=== PATIENT | male | born 1965 | race Caucasian/White ===

== ENCOUNTER 2020-06-29 07:06 | Outpatient (REF) | payer OTHER, SELFPAY ==
[2020-06-29 07:57] LABS: MANUAL DIFF FLAG NO
[2020-06-29 08:01] LABS: Basophils Absolute Auto 0.1 X10*3/uL (0.0-0.2); Basophils Percent Auto 1.1 % (0-2); Eosinophils Absolute Auto 0.1 X10*3/uL (0.0-0.4); Eosinophils Percent Auto 1.3 % (0-4); Hematocrit 48.3 % (42-52); Hemoglobin 16.2 g/dl (14.0-18.0); Imm Gran Abs Auto 0.02 X10*3/uL (0.00-0.03); Imm Gran Pct Auto 0.2 % (0.0-0.4); Lymphocytes Absolute Auto 3.1 X10*3/uL (1.2-4.9); Mean Corpuscular HGB Conc 33.5 g/dl (31.0-36.0); Mean Corpuscular Hemoglobin 31.8 pg (27.0-33.0); Mean Corpuscular Volume 94.7 fL (80-98); Mean Platelet Volume 10.5 fL (9.4-12.4); Monocytes Absolute Auto 0.4 X10*3/uL (0.1-1.2); Monocytes Percent Auto 4.7 % (2-11); Neutrophils Absolute Auto 4.9 X10*3/uL (2.0-8.3); Neutrophils Percent Auto 56.7 % (45-73); Platelet Count 245 X10*3/uL (160-400); Red Cell Distribution Width 12.7 % (11.0-16.0); White Blood Count 8.6 X10*3/uL (4.8-10.8)
[2020-06-29 08:08] LABS: Glucose Urine UA >=1000 MG/DL (NEG); Leukocyte Esterase Urine NEG (NEG); Nitrite Urine NEG (NEG); Specific Gravity - Urine 1.025 (1.005-1.025); Urine Blood NEG (NEG); Urine Ketones NEG (NEG); Urine Protein NEG (NEG-TRACE)
[2020-06-29 08:10] LABS: Appearance Urine CLEAR; Color Urine YELLOW
[2020-06-29 08:19] LABS: Mucus Urine TRACE /LPF; RBC Urine 0 /HPF (0); Squamous Epithelial Cell Urine TRACE /LPF; WBC Urine 0-2 /HPF (0-4)
[2020-06-29 08:20] LABS: Alanine Aminotransferase 21 U/L (0-40); Albumin Level 4.4 g/dL (3.5-5.0); Alkaline Phosphatase 52 U/L (39-117); Anion Gap 14 (12-20); Aspartate Amino Transferase 20 U/L (5-37); Bilirubin Total 0.5 mg/dL (0.0-1.0); Blood Urea Nitrogen 19 mg/dL (9-16); Carbon Dioxide 27 mmol/L (22-29); Chloride 106 mmol/L (96-108); Cholesterol 141 mg/dL; Estimated Glomerular Filt Rate > 60; Glucose Fasting 120 mg/dL (60-99); HDL Cholesterol 64 mg/dL; LDL Cholesterol Calculated 55 mg/dl; Potassium 4.4 mmol/L (3.3-5.1); Sodium 143 mmol/L (135-145); Total Protein 6.6 g/dL (6.5-8.0); Triglycerides 112 mg/dL
[2020-06-29 08:41] LABS: Creatinine Urine 148.52 mg/dL; Microalbum/Creatinine Ratio Ur 12.7 ug/mg cr
[2020-06-29 08:41] LABS: Prostate Specific Antigen 0.34 ng/mL (<0.05-4.0)
[2020-06-29 09:21] LABS: Estimated Average Glucose 117 mg/dL; Hemoglobin A1c % 5.7 %
== END 2020-06-29 07:07 | disposition home or self-care (01) ==
LOC: HO.LAB 07:06
PROVIDERS: Visit Provider Internal Medicine
DX: Z00.00 Encounter for general adult medical examination without abnormal findings (principal); E11.9 Type 2 diabetes mellitus without complications; Z12.5 Encounter for screening for malignant neoplasm of prostate; E78.00 Pure hypercholesterolemia, unspecified; I10 Essential (primary) hypertension; D72.820 Lymphocytosis (symptomatic)
CPT/HCPCS: 36415; 80053; 80061; 81001; 81003; 82043; 83036; 84153; 85025

== ENCOUNTER 2021-02-25 10:22 | Outpatient (REF) | payer OTHER, SELFPAY ==
[2021-02-25 10:59] LABS: Alanine Aminotransferase 27 U/L (0-40); Albumin Level 4.3 g/dL (3.5-5.0); Alkaline Phosphatase 51 U/L (39-117); Aspartate Amino Transferase 27 U/L (5-37); Bilirubin Direct 0.4 mg/dL (0.0-0.5); Bilirubin Total 0.9 mg/dL (0.0-1.0); Cholesterol 163 mg/dL; Glucose Fasting 103 mg/dL (60-99); HDL Cholesterol 78 mg/dL; LDL Cholesterol Calculated 61 mg/dl; Total Protein 6.7 g/dL (6.5-8.0); Triglycerides 122 mg/dL
[2021-02-25 11:01] LABS: Estimated Average Glucose 117 mg/dL; Hemoglobin A1c % 5.7 %
[2021-02-25 11:31] LABS: Reflex LDLD? No
== END 2021-02-25 10:23 | disposition home or self-care (01) ==
LOC: HO.LNP 10:22
PROVIDERS: Visit Provider Internal Medicine
DX: E11.9 Type 2 diabetes mellitus without complications (principal); E78.00 Pure hypercholesterolemia, unspecified
CPT/HCPCS: 80061; 80076; 82947; 83036

== ENCOUNTER 2021-07-05 10:41 | Outpatient (REF) | payer OTHER, SELFPAY ==
[2021-07-05 10:46] LABS: MANUAL DIFF FLAG NO
[2021-07-05 11:02] LABS: Basophils Absolute Auto 0.1 X10*3/uL (0.0-0.2); Basophils Percent Auto 0.9 % (0-2); Eosinophils Absolute Auto 0.1 X10*3/uL (0.0-0.4); Eosinophils Percent Auto 1.1 % (0-4); Hematocrit 44.7 % (42.0-52.0); Hemoglobin 15.1 g/dl (14.0-18.0); Imm Gran Abs Auto 0.02 X10*3/uL (0.00-0.03); Imm Gran Pct Auto 0.3 % (0.0-0.4); Lymphocytes Absolute Auto 3.6 X10*3/uL (1.2-4.9); Lymphocytes Percent Auto 47.7 % (20-40); Mean Corpuscular HGB Conc 33.8 g/dl (31.0-36.0); Mean Corpuscular Hemoglobin 31.8 pg (27.0-33.0); Mean Corpuscular Volume 94.1 fL (80.0-98.0); Mean Platelet Volume 10.4 fL (9.4-12.4); Monocytes Absolute Auto 0.3 X10*3/uL (0.1-1.2); Monocytes Percent Auto 4.5 % (2-11); Neutrophils Absolute Auto 3.4 x10*3/uL (2.0-8.3); Neutrophils Percent Auto 45.5 % (45-73); Platelet Count 262 X10*3/uL (160-400); Red Blood Count 4.75 X10*6/uL (4.60-5.80); Red Cell Distribution Width 13.2 % (11.0-16.0); White Blood Count 7.5 X10*3/uL (4.8-10.8)
[2021-07-05 11:08] LABS: Appearance Urine CLEAR; Color Urine STRAW; Glucose Urine UA NEG (NEG); Leukocyte Esterase Urine NEG (NEG); Nitrite Urine NEG (NEG); PH 5.5 (5.0-8.0); Urine Blood NEG (NEG); Urine Ketones NEG (NEG); Urine Protein NEG (NEG-TRACE)
[2021-07-05 11:13] LABS: Alanine Aminotransferase 25 U/L (0-40); Albumin Level 3.9 g/dL (3.5-5.0); Alkaline Phosphatase 45 U/L (39-117); Anion Gap 11 (12-20); Aspartate Amino Transferase 24 U/L (5-37); Bilirubin Total 0.5 mg/dL (0.0-1.0); Blood Urea Nitrogen 12 mg/dL (9-16); Calcium 8.7 mg/dL (8.4-10.2); Carbon Dioxide 29 mmol/L (22-29); Chloride 106 mmol/L (96-108); Cholesterol 153 mg/dL; Estimated Glomerular Filt Rate > 60; Glucose Fasting 109 mg/dL (60-99); HDL Cholesterol 69 mg/dL; LDL Cholesterol Calculated 67 mg/dl; Potassium 4.5 mmol/L (3.3-5.1); Sodium 141 mmol/L (135-145); Total Protein 6.1 g/dL (6.5-8.0); Triglycerides 86 mg/dL
[2021-07-05 11:35] LABS: PSA,Total (Free>4and<10) 0.39 ng/mL (0.00-4.00)
[2021-07-05 11:46] LABS: Creatinine Urine 61.12 mg/dL; Microalbum/Creatinine Ratio Ur 34.3 ug/mg cr
[2021-07-05 12:10] LABS: Estimated Average Glucose 126 mg/dL
== END 2021-07-05 10:42 | disposition home or self-care (01) ==
LOC: HO.LNP 10:41
PROVIDERS: PCP Internal Medicine; Visit Provider Internal Medicine
DX: Z00.00 Encounter for general adult medical examination without abnormal findings (principal); Z12.5 Encounter for screening for malignant neoplasm of prostate; E11.9 Type 2 diabetes mellitus without complications; I10 Essential (primary) hypertension; D72.820 Lymphocytosis (symptomatic)
CPT/HCPCS: 80053; 80061; 81003; 82043; 83036; 84153; 85025

== ENCOUNTER 2022-01-06 10:48 | Outpatient (REF) | payer OTHER, SELFPAY ==
[2022-01-06 12:03] LABS: Estimated Average Glucose 123 mg/dL; Hemoglobin A1c % 5.9 %
[2022-01-06 12:11] LABS: Alanine Aminotransferase 27 U/L (0-40); Albumin Level 4.2 g/dL (3.5-5.0); Alkaline Phosphatase 60 U/L (39-117); Aspartate Amino Transferase 22 U/L (5-37); Bilirubin Direct 0.2 mg/dL (0.0-0.5); Bilirubin Total 0.5 mg/dL (0.0-1.0); Cholesterol 175 mg/dL; Glucose Fasting 130 mg/dL (60-99); HDL Cholesterol 66 mg/dL; LDL Cholesterol Calculated 95 mg/dl; Total Protein 6.4 g/dL (6.5-8.0); Triglycerides 71 mg/dL
== END 2022-01-06 10:49 | disposition home or self-care (01) ==
LOC: HO.LNP 10:48
PROVIDERS: Visit Provider Internal Medicine
DX: E11.9 Type 2 diabetes mellitus without complications (principal); E78.00 Pure hypercholesterolemia, unspecified
CPT/HCPCS: 80061; 80076; 82947; 83036

== ENCOUNTER 2022-04-30 09:08 | Outpatient (REF) | payer OTHER, SELFPAY ==
--- NOTE | ~2022-04-30 | XR_ITS ---
EXAMINATION: XR CERVICAL SPINE CLINICAL INFORMATION: Cervical pain. COMPARISON: None TECHNIQUE: 5 views of the cervical spine were obtained. FINDINGS: There is straightening of the normal cervical lordosis. Mild degenerative disc disease is seen from C4-5 to C7-T1 with disc space narrowing and marginal osteophyte formation. Mild bilateral neural foraminal narrowing is seen at C5-6 and C6-7. The odontoid process is intact. The spinous processes are intact. The soft tissues are unremarkable.. Mild grade 1 anterolisthesis is seen at C4-5. XR/XR cervical spine 4V IMPRESSION: 1. Straightening of the normal cervical lordosis may be secondary to positioning and/or muscle spasm. 2. Mild multilevel degenerative disc disease. C5-6 and C6-7 mild bilateral neural foraminal narrowing. 3. C4-5 mild grade 1 anterolisthesis.
== END 2022-04-30 09:09 | disposition home or self-care (01) ==
LOC: HO.HMGCX 09:08
PROVIDERS: PCP Internal Medicine; Visit Provider Internal Medicine
DX: M50.90 Cervical disc disorder, unspecified, unspecified cervical region (principal)
CPT/HCPCS: 72050

== ENCOUNTER 2022-05-16 07:59 | Outpatient (REF) | payer OTHER, SELFPAY ==
--- NOTE | ~2022-05-16 | CT_ITS ---
EXAMINATION: CT CERVICAL SPINE WITHOUT CONTRAST CLINICAL INFORMATION: Cervical disc disorder. Neck pain. COMPARISON: None TECHNIQUE: 2 mm thin axial and reformatted 2 minutes thin sagittal coronal images of cervical spine were obtained. This CT examination was performed using dose optimization techniques as appropriate, variously including the following: *Automated exposure control *Adjustment of mA and/or kV according to patient size (this includes techniques or standardized protocols for targeted exams where dose is matched to indication/reason for exam; i.e. extremities or head) *Use of iterative reconstruction technique DLP: 623 mGy-cm FINDINGS: There is mild straightening of cervical lordosis. The vertebral heights and alignment is normal. There is loss of C4-C5, C5-C6 and C6-C7 disc heights with mild ventral and posterior spondylosis. The craniovertebral junction and C1-C2 alignment is normal. There is no visible acute fracture, dislocation or subluxation seen. There is mild narrowing of right neural foramina C5-C6 and bilaterally at C6-C7 disc levels from uncovertebral hypertrophic changes. No disc bulge, herniation or spinal canal stenosis seen. The prevertebral and paravertebral soft tissues are normal. The airway is widely patent. The lung apices are clear. Mild degenerative changes with vacuum phenomena of bilateral first rib costovertebral junction is noted. The thyroid lobes are slightly asymmetrical but normal. Partially visualized submandibular and parotid glands are unremarkable. CT/CT cervical spine wo IV con IMPRESSION: Degenerative disc changes with spondylosis C4-C5, C5-C6 and C6-C7 disc levels. Mild straightening of cervical lordosis likely spasm. No visible acute fracture or dislocation seen. Fleischner guidelines were followed.
== END 2022-05-16 08:00 | disposition home or self-care (01) ==
LOC: HO.CT 07:59
PROVIDERS: PCP Internal Medicine; Visit Provider Internal Medicine
DX: M50.90 Cervical disc disorder, unspecified, unspecified cervical region (principal)
CPT/HCPCS: 72125

== ENCOUNTER 2022-06-14 10:38 | Outpatient (REF) | payer OTHER, SELFPAY ==
[2022-06-14 11:51] LABS: Blood Urea Nitrogen 13 mg/dL (9-16); Estimated Glomerular Filt Rate > 60
== END 2022-06-14 10:39 | disposition home or self-care (01) ==
LOC: HO.LNP 10:38
PROVIDERS: Visit Provider Internal Medicine
DX: Z01.812 Encounter for preprocedural laboratory examination (principal)
CPT/HCPCS: 82565; 84520

== ENCOUNTER 2022-07-25 11:21 | Outpatient (REF) | payer OTHER, SELFPAY ==
[2022-07-25 11:26] LABS: MANUAL DIFF FLAG NO
[2022-07-25 11:42] LABS: Basophils Absolute Auto 0.1 X10*3/uL (0.0-0.2); Basophils Percent Auto 1.2 % (0-2); Eosinophils Absolute Auto 0.1 X10*3/uL (0.0-0.4); Eosinophils Percent Auto 1.4 % (0-4); Hematocrit 44.3 % (42.0-52.0); Hemoglobin 15.1 g/dl (14.0-18.0); Imm Gran Abs Auto 0.02 X10*3/uL (0.00-0.03); Imm Gran Pct Auto 0.2 % (0.0-0.4); Lymphocytes Absolute Auto 3.4 X10*3/uL (1.2-4.9); Lymphocytes Percent Auto 34.8 % (20-40); Mean Corpuscular HGB Conc 34.1 g/dl (31.0-36.0); Mean Corpuscular Hemoglobin 32.4 pg (27.0-33.0); Mean Corpuscular Volume 95.1 fL (80.0-98.0); Mean Platelet Volume 11.4 fL (9.4-12.4); Monocytes Absolute Auto 0.4 X10*3/uL (0.1-1.2); Monocytes Percent Auto 3.9 % (2-11); Neutrophils Absolute Auto 5.7 x10*3/uL (2.0-8.3); Neutrophils Percent Auto 58.5 % (45-73); Platelet Count 277 X10*3/uL (160-400); Red Blood Count 4.66 X10*6/uL (4.60-5.80); Red Cell Distribution Width 12.7 % (11.0-16.0); White Blood Count 9.7 X10*3/uL (4.8-10.8)
[2022-07-25 11:49] LABS: Estimated Average Glucose 134 mg/dL; Hemoglobin A1c % 6.3 %
[2022-07-25 12:02] LABS: Appearance Urine Clear; Color Urine Yellow; Glucose Urine UA Negative (Negative); Leukocyte Esterase Urine Negative (Negative); Nitrite Urine Negative (Negative); PH 5.5 (5.0-9.0); Specific Gravity - Urine 1.015 (1.005-1.025); Urine Blood Negative (Negative); Urine Ketones Negative (Negative); Urine Protein Negative (Neg-Trace)
[2022-07-25 12:04] LABS: Alanine Aminotransferase 24 U/L (0-40); Albumin Level 4.2 g/dL (3.5-5.0); Alkaline Phosphatase 53 U/L (39-117); Anion Gap 12 (12-20); Aspartate Amino Transferase 21 U/L (5-37); Bilirubin Total 0.8 mg/dL (0.0-1.0); Blood Urea Nitrogen 12 mg/dL (9-16); Calcium 9.1 mg/dL (8.4-10.2); Carbon Dioxide 29 mmol/L (22-29); Chloride 104 mmol/L (96-108); Cholesterol 175 mg/dL; Estimated Glomerular Filt Rate > 60; Glucose Fasting 152 mg/dL (60-99); HDL Cholesterol 63 mg/dL; LDL Cholesterol Calculated 87 mg/dl; Potassium 3.8 mmol/L (3.3-5.1); Sodium 141 mmol/L (135-145); Total Protein 6.4 g/dL (6.5-8.0); Triglycerides 126 mg/dL
[2022-07-25 12:07] LABS: Bacteria Urine None Seen (None Seen); Hyaline Casts Urine 0-2 /LPF (0-2); RBC Urine 0-2 /HPF (0-2); Squamous Epithelial Cell Urine 0-2 /HPF (0-2); WBC Urine 0-5 /HPF (0-5)
[2022-07-25 12:19] LABS: PSA,Total (Free>4and<10) 0.51 ng/mL (0.00-4.00)
[2022-07-25 13:05] LABS: Creatinine Urine 109.89 mg/dL; Microalbum/Creatinine Ratio Ur 14.5 ug/mg cr
[2022-07-25 13:53] LABS: Reflex LDLD? No
== END 2022-07-25 11:22 | disposition home or self-care (01) ==
LOC: HO.LNP 11:21
PROVIDERS: Visit Provider Internal Medicine
DX: Z00.00 Encounter for general adult medical examination without abnormal findings (principal); Z12.5 Encounter for screening for malignant neoplasm of prostate; E11.9 Type 2 diabetes mellitus without complications; E78.00 Pure hypercholesterolemia, unspecified; I10 Essential (primary) hypertension; D72.820 Lymphocytosis (symptomatic)
CPT/HCPCS: 80053; 80061; 81001; 82043; 83036; 84153; 85025

== ENCOUNTER 2023-02-03 08:44 | Day surgery (SDC) | payer OTHER, SELFPAY ==
--- NOTE | 2023-02-02 12:19 | HO.ANESPROP2 ---
Documented by User: Gladys Valle NP 02/02/23 12:19 HPI - Anesthesia Eval Consult details Narrative: 57yo M for Upper Endoscopy and Colonoscopy [facility] Past Medical History Medical History Elevated cholesterol Sciatica Cervical disc disease HTN (hypertension) Diabetes Hiatal hernia Jones esophagus Surgical History Surgical History Hx of umbilical hernia repair History of surgery on arm Hx of colonoscopy Hx of esophagogastroduodenoscopy Social History Social History Patient Tobacco Use Status: Current everyday Tobacco user Tobacco use type: Cigarette Cigarette Packs Per Day: 1 Cigarettes Per Day: 20.0 Years Smoked: 20 Meds Allergies Allergy/AdvReac Type Severity Reaction Status Date / Time Sulfa (Sulfonamide Allergy Unknown UNKNOWN - Unverified 02/13/20 14:50 Antibiotics) A YOUNG [SULFA (SULFONAMIDE CHILD ANTIBIOTICS)] Sulfa Allergy Unknown Uncoded 08/30/18 00:00 Home Medications Medication Instructions Recorded Confirmed Last Taken Type atorvastatin 20 mg tablet 20 mg PO DAILY 02/02/23 02/02/23 Unknown History ibuprofen 800 mg tablet 800 mg PO TID 02/02/23 02/02/23 Unknown History irbesartan 300 1 tab PO DAILY 02/02/23 02/02/23 Unknown History mg-hydrochlorothiazide 12.5 mg tablet ketoconazole 2 % topical cream 1 appl topical 02/02/23 Unknown History metformin 500 mg tablet 1,000 mg PO BID 02/02/23 02/02/23 Unknown History omeprazole 20 mg capsule,delayed 20 mg PO DAILY 02/02/23 02/02/23 Unknown History release sitagliptin phosphate 50 mg tablet 50 mg PO DAILY 02/02/23 02/02/23 Unknown History (Januvia) valacyclovir 1 gram tablet 4,000 mg PO ONCE 02/02/23 02/02/23 Unknown History Exam Exam Date and Time: February 02, 2023 121 Assessment and Plan Assessment Anesthesia Assessment: Chart Reviewed Documented by User: Meera Godwin MD 02/03/23 11:21 PMFSH Active Problems Active Problems: Smoker- last cigarette this morning HTN DM GERD Past Medical History Medical History Elevated cholesterol Sciatica Cervical disc disease HTN (hypertension) Diabetes Hiatal hernia Jones esophagus Family History Family history of problems with anesthesia: No Surgical History Surgical History Hx of umbilical hernia repair History of surgery on arm Hx of colonoscopy Hx of esophagogastroduodenoscopy History of Problems with Anesthesia: No (but patient states was told that he probably has NIA with UE surgery. Never tested) Social History Social History Patient Tobacco Use Status: Current everyday Tobacco user Tobacco use type: Cigarette Cigarette Packs Per Day: 1 Cigarettes Per Day: 20.0 Years Smoked: 20 Meds Allergies Allergy/AdvReac Type Severity Reaction Status Date / Time Sulfa (Sulfonamide Allergy Unknown UNKNOWN - Unverified 02/13/20 14:50 Antibiotics) A YOUNG [SULFA (SULFONAMIDE CHILD ANTIBIOTICS)] Sulfa Allergy Unknown Uncoded 08/30/18 00:00 Home Medications Medication Instructions Recorded Confirmed Last Taken Type atorvastatin 20 mg tablet 20 mg PO DAILY 02/02/23 02/02/23 Unknown History ibuprofen 800 mg tablet 800 mg PO TID 02/02/23 02/02/23 Unknown History irbesartan 300 1 tab PO DAILY 02/02/23 02/02/23 Unknown History mg-hydrochlorothiazide 12.5 mg tablet ketoconazole 2 % topical cream 1 appl topical 02/02/23 Unknown History metformin 500 mg tablet 1,000 mg PO BID 02/02/23 02/02/23 Unknown History omeprazole 20 mg capsule,delayed 20 mg PO DAILY 02/02/23 02/02/23 Unknown History release sitagliptin phosphate 50 mg tablet 50 mg PO DAILY 02/02/23 02/02/23 Unknown History (Januvia) valacyclovir 1 gram tablet 4,000 mg PO ONCE 02/02/23 02/02/23 Unknown History Exam Height,Weight and Vital Signs: Height 5 ft 9 in Weight 104.326 kg Vital Signs Temp Pulse Resp BP Pulse Ox O2 Del Method 02/03/23 11:00 98.1 F 90 18 137/88 96 Room Air Pertinent Lab Results Pertinent Lab Results: Lab Results 02/03/23 Range/Units 10:45 POC Glucose 148 H (60-115) mg/dL Airway Mallampati Class: III TM Dist: >3cm Neck ROM: Full Loose/Missing/Broken Teeth: Yes (Broken tooth bottom back left. Denies loose or missing teeth) Heart: RRR Lungs: CTAB Assessment and Plan Final Anesthetic Review Family History of Problems with Anesthesia: No History of Problems with Anesthesia: No (but patient states was told that he probably has NIA with UE surgery. Never tested) NPO: Yes ASA Class: III Final Preanesthetic Review: No Changes in Pt Med Stat, Meds/Allgs Chart Reviewed, Consent Obtained/Reviewed and Anes Risks/Benef Reviewed Patient Risk: Intermediate Procedure Risk: Low Assessment/Block/Sedation in SS: Assess/Block/Sedation-SS Anesthetic Plan Anesthetic Plan: MAC: Disposition: Standard PACU
[2023-02-03] VITALS (9 sets, daily range): BP systolic 73–137; BP diastolic 42–88; PULSE 81–96; RESP 14–18; TEMP 36.2–36.7; O2SAT 96–99; BMI 34.0
[2023-02-03 10:50] LABS: Glucose, Whole Blood 148 mg/dL (60-115)
--- NOTE | 2023-02-03 11:05 | P.HPSUR_ITS ---
Pre-Procedural Eval Section A Date of Service: 02/03/23 Section B Chief Complaint: Jones's esophagus without dysplasia,screening Details of Present Illness: see h&p no changes Relevant Family History (Specify if Yes): No Relevant Social History: None Present Medications: see Short Stay Collaborative assessment Medical History: No relevant PMH Allergies: Allergies Allergy/AdvReac Type Severity Reaction Status Date / Time Sulfa (Sulfonamide Allergy Unknown UNKNOWN - Unverified 02/13/20 14:50 Antibiotics) A YOUNG [SULFA (SULFONAMIDE CHILD ANTIBIOTICS)] Sulfa Allergy Unknown Uncoded 08/30/18 00:00 Review of Systems Sugical H&P ROS: Negative: Constitution, Cardiovascular, Respiratory, Neurological, Psychiatric, Hem-Onc, Allergic/Immunologic, Gastrointestinal, Genitourinary, Musculoskeletal, Integumentary, Endocrine and Eyes/Ears/N ose/Throat Exam Surgical H&P Exam: Normal: HEENT, Normal: Heart, Normal: Lungs, Normal: Extremities, Normal: Abdomen, Normal: Skin and Normal: Neurological Plan I have reviewed the history and physical and performed a pertinent physical examination on my patient. No changes have occurred unless specified. Time Spent With Patient Time: Total time managing care of this patient today ____ minutes.
[2023-02-03] MEDS: Lactated Ringers 1,000 ML 100 ML IVCONT (11:10)
--- NOTE | 2023-02-03 11:51 | PM.OP ---
Brief Operative Note Date of Service: 02/03/23 Pre-op diagnosis: barretts screening Post-op diagnosis: same Procedure: egd colonoscopy Surgeon: Salvatore Zuñiga Anesthesia: MAC Was an Residential [employer] Technician used for this Procedure?: No Estimated blood loss (mL): 2 Pathology: other Condition: stable Disposition: PACU
--- NOTE | 2023-02-06 08:30 | OP_ITS ---
DATE OF SERVICE: 02/03/2023 SURGEON: Salvatore Zuñiga MD INDICATIONS: 1. Jones esophagus. 2. Colon cancer screening. PREOPERATIVE DIAGNOSIS: POSTOPERATIVE DIAGNOSIS: PROCEDURE PERFORMED: Upper endoscopy with biopsy and colonoscopy to the terminal ileum with snare polypectomy. ESTIMATED BLOOD LOSS: COMPLICATIONS: ANESTHESIA: Monitored anesthesia care. ASSISTANTS: SPECIMENS: DESCRIPTION OF PROCEDURE: History and physical were performed. The risks and benefits of the procedure were explained to the patient, and informed consent was obtained. The patient was placed in the left lateral decubitus position. The Olympus video gastroscope was introduced into the esophagus, stomach, and duodenum. Examination was performed. The scope was removed. He was repositioned for colonoscopy. A digital rectal exam was performed and was found to be normal. The Olympus pediatric video colonoscope was introduced into the rectum and advanced to the cecum. The cecum was identified by transillumination, palpation, and identification of ileocecal valve. Examination was performed. The scope was removed. He tolerated both procedures well and was returned to recovery room in stable condition. FINDINGS: Upper endoscopy: 1. Esophagus: There is a 1 cm area of Jones esophagus with no raised lesions or ulcerated areas. Biopsies were obtained from the EG junction and distal esophagus. There was a small hiatal hernia. 2. Stomach: The stomach was normal. 3. Duodenum: The bulb and 2nd portion were normal. Colonoscopy: The terminal ileum was briefly examined and appeared normal. The visualized colonic mucosa was within normal limits without evidence of masses or ulcers. There was a small less than 10 mm polyp at 50 cm, which was removed with a hot snare and recovered via suction. No other polyps were identified. Retroflexed examination showed small internal hemorrhoids. IMPRESSION: 1. Jones esophagus. 2. Colon polyp. RECOMMENDATION: 1. Follow up biopsy results. 2. Repeat colonoscopy should be considered in 3 to 7 years, pending the pathology on the polyp. MD ENOCH Sanford/[facility] / [id number]
== END 2023-02-03 13:00 | disposition home or self-care (01) ==
PROVIDERS: PCP Internal Medicine; Visit Provider Internal Medicine Gastroenterology
PROC: (CPT 45385; principal; 2023-02-03 10:20)
DX: Z12.11 Encounter for screening for malignant neoplasm of colon (principal); Z83.71 Family history of colonic polyps; D12.5 Benign neoplasm of sigmoid colon; K64.8 Other hemorrhoids; K22.70 Barrett's esophagus without dysplasia; K44.9 Diaphragmatic hernia without obstruction or gangrene; E11.9 Type 2 diabetes mellitus without complications; I10 Essential (primary) hypertension; Z79.84 Long term (current) use of oral hypoglycemic drugs; Z79.1 Long term (current) use of non-steroidal anti-inflammatories (NSAID); Z79.899 Other long term (current) drug therapy; Z98.890 Other specified postprocedural states; F17.210 Nicotine dependence, cigarettes, uncomplicated
CPT/HCPCS: 45385; 43239; 82947; 88305

== ENCOUNTER 2023-02-07 10:31 | Outpatient (REF) | payer OTHER, SELFPAY ==
[2023-02-07 11:23] LABS: Estimated Average Glucose 128 mg/dL; Hemoglobin A1c % 6.1 % (<6.0)
[2023-02-07 11:29] LABS: Cholesterol 155 mg/dL (<200); HDL Cholesterol 55 mg/dL (>40); LDL Cholesterol Calculated 87 mg/dL (<100); Triglycerides 68 mg/dL (<150)
[2023-02-07 11:35] LABS: Alanine Aminotransferase 25 U/L (0-40); Alkaline Phosphatase 55 U/L (39-117); Aspartate Amino Transferase 21 U/L (5-37); Bilirubin Direct < 0.2 mg/dL (0.0-0.5); Bilirubin Total 0.2 mg/dL (0.0-1.0); Glucose Fasting 150 mg/dL (60-99); Total Protein 6.4 g/dL (6.5-8.0)
[2023-02-07 11:44] LABS: Reflex LDLD? No
== END 2023-02-07 10:32 | disposition home or self-care (01) ==
LOC: HO.LNP 10:31
PROVIDERS: Visit Provider Internal Medicine
DX: E11.9 Type 2 diabetes mellitus without complications (principal); E78.00 Pure hypercholesterolemia, unspecified
CPT/HCPCS: 80061; 80076; 82947; 83036

== ENCOUNTER 2023-07-25 10:30 | Outpatient (REF) | payer OTHER, SELFPAY ==
[2023-07-25 10:34] LABS: MANUAL DIFF FLAG NO
[2023-07-25 10:50] LABS: Basophils Absolute Auto 0.1 X10*3/uL (0.0-0.2); Basophils Percent Auto 1.1 % (0-2); Eosinophils Absolute Auto 0.1 X10*3/uL (0.0-0.4); Eosinophils Percent Auto 1.6 % (0-4); Imm Gran Abs Auto 0.02 X10*3/uL (0.00-0.03); Imm Gran Pct Auto 0.2 % (0.0-0.4); Lymphocytes Absolute Auto 3.4 X10*3/uL (1.2-4.9); Lymphocytes Percent Auto 41.9 % (20-40); Mean Corpuscular Hemoglobin 31.9 pg (27.0-33.0); Mean Corpuscular Volume 93.8 fL (80.0-98.0); Mean Platelet Volume 10.7 fL (9.4-12.4); Monocytes Absolute Auto 0.4 X10*3/uL (0.1-1.2); Monocytes Percent Auto 5.3 % (2-11); Neutrophils Percent Auto 49.9 % (45-73); Platelet Count 271 X10*3/uL (160-400); Red Blood Count 5.01 X10*6/uL (4.60-5.80); White Blood Count 8.1 X10*3/uL (4.8-10.8)
[2023-07-25 11:03] LABS: Appearance Urine Clear; Color Urine Yellow; Glucose Urine UA 250 mg/dL (Negative); Leukocyte Esterase Urine Negative (Negative); Nitrite Urine Negative (Negative); PH 5.5 (5.0-9.0); Specific Gravity - Urine 1.025 (1.005-1.025); Urine Blood Negative (Negative); Urine Ketones Negative (Negative); Urine Protein Trace mg/dL (Neg-Trace)
[2023-07-25 11:06] LABS: Bacteria Urine None Seen (None Seen); Hyaline Casts Urine 0-2 /LPF (0-2); RBC Urine 0-2 /HPF (0-2); Squamous Epithelial Cell Urine 0-2 /HPF (0-2); WBC Urine 0-5 /HPF (0-5)
[2023-07-25 11:53] LABS: Alanine Aminotransferase 34 U/L (0-40); Albumin Level 4.2 g/dL (3.5-5.0); Alkaline Phosphatase 65 U/L (39-117); Anion Gap 13 (12-20); Aspartate Amino Transferase 25 U/L (5-37); Bilirubin Total 0.4 mg/dL (0.0-1.0); Blood Urea Nitrogen 18 mg/dL (9-16); Calcium 9.3 mg/dL (8.4-10.2); Carbon Dioxide 27 mmol/L (22-29); Chloride 107 mmol/L (96-108); Cholesterol 151 mg/dL (<200); Estimated Glomerular Filt Rate > 60; Glucose Fasting 140 mg/dL (60-99); HDL Cholesterol 59 mg/dL (>40); LDL Cholesterol Calculated 73 mg/dL (<100); Potassium 3.7 mmol/L (3.3-5.1); Sodium 143 mmol/L (135-145); Total Protein 6.7 g/dL (6.5-8.0); Triglycerides 97 mg/dL (<150)
[2023-07-25 12:16] LABS: Microalbum/Creatinine Ratio Ur 19.5 ug/mg cr (<30)
[2023-07-25 12:39] LABS: PSA,Total (Free>4and<10) 0.26 ng/mL (0.00-4.00)
[2023-07-25 16:23] LABS: Estimated Average Glucose 146 mg/dL; Hemoglobin A1c % 6.7 % (<6.0)
== END 2023-07-25 10:31 | disposition home or self-care (01) ==
LOC: HO.LNP 10:30
PROVIDERS: Visit Provider Internal Medicine
DX: Z00.00 Encounter for general adult medical examination without abnormal findings (principal); Z12.5 Encounter for screening for malignant neoplasm of prostate; E11.9 Type 2 diabetes mellitus without complications; E78.00 Pure hypercholesterolemia, unspecified; D72.820 Lymphocytosis (symptomatic)
CPT/HCPCS: 80053; 80061; 81001; 82043; 82570; 83036; 84153; 85025

== ENCOUNTER 2023-09-15 08:50 | Outpatient (REF) | payer OTHER, SELFPAY ==
--- NOTE | ~2023-09-15 | XR_ITS ---
EXAMINATION: XR CHEST CLINICAL INFORMATION: Bronchitis COMPARISON: 03/12/2014 TECHNIQUE: 2 views of the chest were obtained. FINDINGS: Heart, mediastinum, pulmonary vessels and lung griffiths within normal limits. Mild degenerative changes. XR/XR chest 2V IMPRESSION: No acute cardiopulmonary disease.
== END 2023-09-15 08:51 | disposition home or self-care (01) ==
LOC: HO.HMGCX 08:50
PROVIDERS: PCP Internal Medicine; Visit Provider Internal Medicine
DX: J40 Bronchitis, not specified as acute or chronic (principal)
CPT/HCPCS: 71046

== ENCOUNTER 2024-01-30 12:30 | Outpatient (REF) | payer OTHER, SELFPAY ==
[2024-01-30 12:53] LABS: Estimated Average Glucose 148 mg/dL; Hemoglobin A1c % 6.8 % (<6.0)
[2024-01-30 12:58] LABS: Alanine Aminotransferase 37 U/L (0-40); Albumin Level 4.1 g/dL (3.5-5.0); Alkaline Phosphatase 58 U/L (39-117); Aspartate Amino Transferase 26 U/L (5-37); Bilirubin Direct 0.2 mg/dL (0.0-0.5); Bilirubin Total 0.6 mg/dL (0.0-1.0); Cholesterol 191 mg/dL (<200); Glucose Fasting 185 mg/dL (60-99); HDL Cholesterol 63 mg/dL (>40); LDL Cholesterol Calculated 95 mg/dL (<100); Total Protein 6.7 g/dL (6.5-8.0); Triglycerides 167 mg/dL (<150)
[2024-01-30 13:48] LABS: Reflex LDLD? No
== END 2024-01-30 12:31 | disposition home or self-care (01) ==
LOC: HO.LNP 12:30
PROVIDERS: Visit Provider Internal Medicine
DX: E78.00 Pure hypercholesterolemia, unspecified (principal); E11.9 Type 2 diabetes mellitus without complications
CPT/HCPCS: 80061; 80076; 82947; 83036

== ENCOUNTER 2024-05-02 10:33 | Outpatient (REF) | payer OTHER, SELFPAY ==
[2024-05-02 12:22] LABS: Estimated Average Glucose 157 mg/dL; Hemoglobin A1C 210.4179 umol/L; Hemoglobin A1c % 7.1 % (<6.0); Total Hemoglobin (HGBA1C) 3911.8834 umol/L
[2024-05-02 12:35] LABS: Alanine Aminotransferase 54 U/L (0-40); Albumin Level 4.3 g/dL (3.5-5.0); Alkaline Phosphatase 51 U/L (39-117); Aspartate Amino Transferase 41 U/L (5-37); Bilirubin Direct 0.2 mg/dL (0.0-0.5); Bilirubin Total 0.4 mg/dL (0.0-1.0); Cholesterol 182 mg/dL (<200); Glucose Fasting 185 mg/dL (60-99); HDL Cholesterol 72 mg/dL (>40); LDL Cholesterol Calculated 92 mg/dL (<100); Total Protein 6.8 g/dL (6.5-8.0); Triglycerides 91 mg/dL (<150)
--- OUTSIDE RECORDS SUMMARY | 2024-05-08 01:38 | XMS_ITS | Patient Health Record ---
Author Organization Benji Cardenas MD Address [address] [place], [place] [id number] Care Team Providers Care Nurse Assessor Name Role Phone Benji Cardenas Primary Care Provider [phone] ALLERGIES Allergen (clinical drug ingredient) Drug/Non Drug Allergy documented on EMR Reaction Allergy Type Onset Date Status Substance with sulfonamide structure and antibacterial mechanism of action (substance) sulfa (uncoded) hives Allergy Active RESULTS Component Value Reference Range Notes Complete Blood Count Auto Di ff Reviewed date:07/25/2023 04:33:59 PM Interpretation: Performing Lab:[facility], [address] [place] [phone] Notes/Report: White Blood Count 8.1 4.8-10.8 X10*3/uL Red Blood Count 5.01 4.60-5.80 X10*6/uL Hemoglobin 16.0 14.0-18.0 g/dl Hematocrit 47.0 42.0-52.0 % Mean Corpuscular Volume 93.8 80.0-98.0 fL Mean Corpuscular Hemoglobin 31.9 27.0-33.0 pg Mean Corpuscular HGB Conc 34.0 31.0-36.0 g/dl Red Cell Distribution Width 13.0 11.0-16.0 % Platelet Count 271 160-400 X10*3/uL Mean Platelet Volume 10.7 9.4-12.4 fL Neutrophils Percent Auto 49.9 45-73 % Imm Gran Pct Auto 0.2 0.0-0.4 % Lymphocytes Percent Auto 41.9 20-40 % Monocytes Percent Auto 5.3 2-11 % Eosinophils Percent Auto 1.6 0-4 % Basophils Percent Auto 1.1 0-2 % NRBC Pct Auto 0.0 0.0-0.2 /100WBC Neutrophils Absolute Auto 4.0 2.0-8.3 x10*3/u L Imm Gran Abs Auto 0.02 0.00-0.03 X10*3/uL Lymphocytes Absolute Auto 3.4 1.2-4.9 X10*3/u L Monocytes Absolute Auto 0.4 0.1-1.2 X10*3/uL Eosinophils Absolute Auto 0.1 0.0-0.4 X10*3/u L Basophils Absolute Auto 0.1 0.0-0.2 X10*3/uL NRBC Abs Auto 0.000 0.0-0.012 X10*3/uL Comprehensive [place]. Panel Fa st Reviewed date:07/27/2023 07:12:48 PM Interpretation: Performing Lab:[facility], [address] [place] [phone] Notes/Report: Sodium 143 135-145 mmol/L Potassium 3.7 3.3-5.1 mmol/L Chloride 107 96-108 mmol/L Carbon Dioxide 27 22-29 mmol/L Anion Gap 13 12-20 Blood Urea Nitrogen 18 9-16 mg/dL Creatinine 0.85 0.5-1.4 mg/dL Estimated Glomerular Filt Rate > 60 NOTE: For -[place]unis[place] individuals, multiply the result by 1.210. Chronic Kidney Disease: Estimated GFR < 60 mL/min/1.73m2 Severe Kidney Disease: Estimated GFR < 15 mL/min/1.73m2 Glucose Fasting 140 60-99 mg/dL A fasting glucose of 126 mg/dl or greater on more than one occasion is considered diagnostic of diabetes. Calcium 9.3 8.4-10.2 mg/dL Bilirubin Total 0.4 0.0-1.0 mg/dL Aspartate Amino Transferase 25 5-37 U/L Alanine Aminotransferase 34 0-40 U/L Total Protein 6.7 6.5-8.0 g/dL Albumin Level 4.2 3.5-5.0 g/dL Alkaline Phosphatase 65 39-117 U/L Lipid Panel Reviewed date:07/25/2023 12:41:18 PM Interpretation: Performing Lab:[address] [phone] Notes/Report: Triglycerides 97 <150 mg/dL Desirable Triglyceride: less than 150 mg/dL Borderline High Triglyceride 150-199 mg/dL High Triglyceride: 200-499 mg/dL Very High Triglyceride: greater than or equal to 5OO mg/dL Cholesterol 151 <200 mg/dL Desirable Cholesterol: less than 200 mg/dL Borderline High Cholesterol: 200-239 mg/dL High Cholesterol: greater than 239 mg/dL LDL Cholesterol Calculated 73 <100 mg/dL Desirable LDL: less than 100 mg/dL Near Optimal/Above Optimal LDL: 110-129 mg/dL Borderline High LDL: 130-159 mg/dL High LDL: 160-189 mg/dL Very High LDL: greater than or equal to 190 mg/dL HDL Cholesterol 59 >40 mg/dL Desirable HDL: greater than 40 mg/dL Note: This HDL assay may give artificially low results in patients with liver disease. PSA,Total (Free>4and<10) Reviewed date:07/25/2023 12:44:59 PM Interpretation: Performing Lab:[address] [phone] Notes/Report: PSA,Total (Free>4and<10) 0.26 0.00-4.00 ng/mL A Free PSA was not performed: The percentage of Free PSA can be used to enhance the differentiation of prostate cancer from benign prostatic disease in subjects whose PSA levels are between 4.0 and 10.0 ng/mL. For subjects whose PSA levels are below 4.0 or above 10.0 ng/mL, the risk of prostate cancer is determined on the basis of the PSA alone. Therefore the % Free PSA is recommended only for those subjects whose PSA levels are between 4.0 and 10.0 ng/mL. PSA methodology: Rivas Alinity i Chemiluminescent Microparticle Immunoassay (CMIA) Microalbumin, Random Reviewed date:07/25/2023 04:33:21 PM Interpretation: Performing Lab:[address] [phone] Notes/Report: Creatinine Urine 251.10 Microalbumin Urine 49.0 Microalbum/Creatinine Ratio Ur 19.5 <30 ug/mg cr Albumin/Creatinine Ratio Reference Ranges: Normal: < 30 ug/mg creatinine Microalbuminuria: 30 - 300 ug/mg creatinine Clinical Albuminuria: > 300 ug/mg creatinine Hemoglobin A1c Reviewed date:07/25/2023 04:31:41 PM Interpretation: Performing Lab:[address] [phone] Notes/Report: Hemoglobin A1c % 6.7 <6.0 % Hemoglobin A1C Reference Range Adults: 4.8 - 6.0 % Non diabetic: < 6.0 % Goal: < 7.0 % Additional Action Suggested: > 8.0 % Note: Hemoglobin A1c results are invalid for patients with abnormal amounts of HbF. Blood transfusions may impact the HbA1c concentration in the patient sample. Estimated Average Glucose 146 eAG = Estimated average glucose which is %A1C expressed as average glucose, using the formula of the J4F-Uijncdf Average Glucose study (ADAG), Diabetes Care, Vol.31,#8, Dec. 2007 UA ClnCatch+Micro w/rflx Cul t Reviewed date:07/27/2023 05:09:08 PM Interpretation: Performing Lab:[address] [phone] Notes/Report: Urine, Clean Catch Color Urine Yellow Appearance Urine Clear PH 5.5 5.0-9.0 Glucose Urine UA 250 Negative mg/dL Urine Blood Negative Negative Specific Sc[place]ey - Urine 1.025 1.005-1.025 Urine Protein Trace Neg-Trace mg/dL Urine Ketones Negative Negative mg/dL Nitrite Urine Negative Negative Leukocyte Esterase Urine Negative Negative RBC Urine 0-2 0-2 /HPF WBC Urine 0-5 0-5 /HPF Squamous Epithelial Cell Urine 0-2 0-2 /HPF Bacteria Urine None Seen None Seen Hyaline Casts Urine 0-2 0-2 /LPF Diabetic Eye Exam Reviewed date:09/08/2023 11:45:33 AM Interpretation:no Diabetic retinopathy Performing Lab: Notes/Report: no Diabetic retinopathy XR chest 2V Reviewed date:09/15/2023 12:42:38 PM Interpretation: Performing Lab: Notes/Report: [facility] [place] [address] XRay Report Signed Patient: Umer Newby MR#: [id number] : 1965 Acct:[id number] Age/Sex: 57 / M ADM Date: 09/15/23 [facility] Att[facility] Dr: Benji Cardenas MD Ordering Physician: Benji Cardenas MD Date of Service: 09/15/23 Procedure(s): XR chest 2V Accession Number(s): [id number] cc: Benji Cardenas MD EXAMINATION: XR CHEST CLINICAL INFORMATION: Bronchitis COMPARISON: 03/12/2014 TECHNIQUE: 2 views of the chest were obtained. FINDINGS: Heart, mediastinum, pulmonary vessels and lung griffiths within normal limits. Mild degenerative changes. XR/XR chest 2V IMPRESSION: No acute cardiopulmonary disease. Dictated By: Malou Payne MD Signed By: <Electronically signed by Malou Payne MD in OV> 09/15/23 0945 DD/ 0920 TD/TT: Hops Farmworker: Rubens Leon Reviewed date:01/30/2024 12:54:47 PM Interpretation: Performing Lab:[facility], [address] [place] [phone] Notes/Report: Rubens Leon See Note Specimen held untested for 24 hours; Call to request Chemistry testing. Liver Panel Reviewed date:01/30/2024 02:14:36 PM Interpretation: Performing Lab:[address] [phone] Notes/Report: Bilirubin Total 0.6 0.0-1.0 mg/dL Bilirubin Direct 0.2 0.0-0.5 mg/dL Aspartate Amino Transferase 26 5-37 U/L Alanine Aminotransferase 37 0-40 U/L Total Protein 6.7 6.5-8.0 g/dL Albumin Level 4.1 3.5-5.0 g/dL Alkaline Phosphatase 58 39-117 U/L Glucose Fasting Reviewed date:01/30/2024 04:52:52 PM Interpretation: Performing Lab:[facility], [address] [place] [phone] Notes/Report: Glucose Fasting 185 60-99 mg/dL A fasting glucose of 126 mg/dl or greater on more than one occasion is considered diagnostic of diabetes. Lipid Panel with Reflex Reviewed date:01/30/2024 05:06:04 PM Interpretation: Performing Lab:[facility], [address] [place] [phone] Notes/Report: Triglycerides 167 <150 mg/dL Desirable Triglyceride: less than 150 mg/dL Borderline High Triglyceride 150-199 mg/dL High Triglyceride: 200-499 mg/dL Very High Triglyceride: greater than or equal to 5OO mg/dL Cholesterol 191 <200 mg/dL Desirable Cholesterol: less than 200 mg/dL Borderline High Cholesterol: 200-239 mg/dL High Cholesterol: greater than 239 mg/dL LDL Cholesterol Calculated 95 <100 mg/dL Desirable LDL: less than 100 mg/dL Near Optimal/Above Optimal LDL: 110-129 mg/dL Borderline High LDL: 130-159 mg/dL High LDL: 160-189 mg/dL Very High LDL: greater than or equal to 190 mg/dL HDL Cholesterol 63 >40 mg/dL Desirable HDL: greater than 40 mg/dL Note: This HDL assay may give artificially low results in patients with liver disease. Hemoglobin A1c Reviewed date:01/30/2024 01:01:42 PM Interpretation: Performing Lab:[facility], [address] [place] [phone] Notes/Report: Hemoglobin A1c % 6.8 <6.0 % Hemoglobin A1C Reference Range Adults: 4.8 - 6.0 % Non diabetic: < 6.0 % Goal: < 7.0 % Additional Action Suggested: > 8.0 % Note: Hemoglobin A1c results are invalid for patients with abnormal amounts of HbF. Blood transfusions may impact the HbA1c concentration in the patient sample. Estimated Average Glucose 148 eAG = Estimated average glucose which is %A1C expressed as average glucose, using the formula of the B4L-Bqzqziz Average Glucose study (ADAG), Diabetes Care, Vol.31,#8, 2007 Rubens Leon Reviewed date:05/02/2024 03:22:01 PM Interpretation: Performing Lab:[facility], [address] [place] [phone] Notes/Report: Rubens Leon See Note Specimen held untested for 24 hours; Call to request Chemistry testing. Liver Panel Reviewed date:05/02/2024 12:55:35 PM Interpretation: Performing Lab:[facility], [address] [place] [phone] Notes/Report: Bilirubin Total 0.4 0.0-1.0 mg/dL Bilirubin Direct 0.2 0.0-0.5 mg/dL Aspartate Amino Transferase 41 5-37 U/L Alanine Aminotransferase 54 0-40 U/L Total Protein 6.8 6.5-8.0 g/dL Albumin Level 4.3 3.5-5.0 g/dL Alkaline Phosphatase 51 39-117 U/L Glucose Fasting Reviewed date:05/02/2024 12:57:00 PM Interpretation: Performing Lab:[facility], [address] [place] [phone] Notes/Report: Glucose Fasting 185 60-99 mg/dL A fasting glucose of 126 mg/dl or greater on more than one occasion is considered diagnostic of diabetes. Lipid Panel Reviewed date:05/02/2024 03:18:42 PM Interpretation: Performing Lab:[facility], [address] [place] [phone] Notes/Report: Triglycerides 91 <150 mg/dL Desirable Triglyceride: less than 150 mg/dL Borderline High Triglyceride 150-199 mg/dL High Triglyceride: 200-499 mg/dL Very High Triglyceride: greater than or equal to 5OO mg/dL Cholesterol 182 <200 mg/dL Desirable Cholesterol: less than 200 mg/dL Borderline High Cholesterol: 200-239 mg/dL High Cholesterol: greater than 239 mg/dL LDL Cholesterol Calculated 92 <100 mg/dL Desirable LDL: less than 100 mg/dL Near Optimal/Above Optimal LDL: 110-129 mg/dL Borderline High LDL: 130-159 mg/dL High LDL: 160-189 mg/dL Very High LDL: greater than or equal to 190 mg/dL HDL Cholesterol 72 >40 mg/dL Desirable HDL: greater than 40 mg/dL Note: This HDL assay may give artificially low results in patients with liver disease. Hemoglobin A1c Reviewed date:05/02/2024 12:56:03 PM Interpretation: Performing Lab:[facility], [address] [place] [phone] Notes/Report: Hemoglobin A1c % 7.1 <6.0 % Hemoglobin A1C Reference Range Adults: 4.8 - 6.0 % Non diabetic: < 6.0 % Goal: < 7.0 % Additional Action Suggested: > 8.0 % Note: Hemoglobin A1c results are invalid for patients with abnormal amounts of HbF. Blood transfusions may impact the HbA1c concentration in the patient sample. Estimated Average Glucose 157 eAG = Estimated average glucose which is %A1C expressed as average glucose, using the formula of the L0Z-Hlqqshl Average Glucose study (ADAG), Diabetes Care, Vol.31,#8, Dec. 2007 REASON FOR REFERRAL No Information MEDICATIONS Medication SIG (Take, Route, Frequency, Duration) Notes Start Date End Date Status valACYclovir HCl 1 GM TAKE 2 TABLETS BY MOUTH EVERY 12 HOURS FOR 1 DOSE Orally Once a day for 1 days Active Omeprazole 20 MG TAKE 1 CAPSULE BY MOUTH DAILY for 90 Active Tadalafil 10 MG 1 tablet as needed Orally Once a day as needed 07/06/2020 Active Viagra 50 MG 1 tablet as needed Orally Once a day for 30 day(s) 03/16/2015 Not-Taking Ketoconazole 2 % 1 application Externally Twice a day for 30 days 03/08/2022 Active Atorvastatin Calcium 40 MG take 1 tablet by mouth daily Orally Once a day for 90 days Active Ibuprofen 800 MG TAKE 1 TABLET BY NYA TH 3 TIMES A DAY Orally Three times a day for 30 days Active Cyclobenzaprine HCl 5 MG TAKE 1 TABLET B Y MOUTH AT BEDTIME NEEDED for 30 Active metFORMIN HCl 500 MG TAKE 2 TABLETS BY MOUTH TWICE DAILY WITH MEALS Orally 2 times a day Active Januvia 50 MG TAKE 1 TABLET BY NYA TH ONCE A DAY Active Fluconazole 150 MG 2 tablet Orally repe at in one week for 7 days Not-Ondina chua Irbesartan-hydroCHLOROthia zide 300-12.5 MG TAKE 1 TABLET BY MOUTH ONCE A DAY Orally Once a day for 90 days Active IMMUNIZATIONS Vaccine Route Administration Date Status Comme nts TDaP Unknown 07/19/2012 Administered Flu Vaccine IM Intramuscular 05/27/2013 Administered Flu Vaccine IM Intramuscular 03/27/2014 Administered Fluarix Quadrivalent IM Intramuscular 03/16/2015 Administe red Fluarix Quadrivalent IM Intramuscular 03/15/2016 Administe red PPSV23 (Pnemovax) IM Intramuscular 05/31/2016 Administered Fluarix Quadrivalent IM Intramuscular 04/10/2017 Administe red Fluarix Quadrivalent IM Intramuscular 06/19/2018 Administe red Fluarix Quadrivalent IM Intramuscular 07/02/2019 Administe red Prevnar 13 IM Intramuscular 07/04/2019 Administered Shingrix IM Intramuscular 07/16/2019 Administered Tetanus Unknown 07/19/2012 Administered Shingrix IM Intramuscular 12/16/2019 Administered Fluarix Quadrivalent IM Intramuscular 02/20/2020 Administe red Fluarix Quadrivalent IM Intramuscular 02/25/2021 Administe red SARS-COV-2 Pfizer Unknown 10/17/2020 Administered SARS-COV-2 Pfizer Unknown 11/07/2020 Administered SARS-COV-2 Pfizer Unknown 08/20/2021 Administered Fluarix Quadrivalent IM Intramuscular 03/08/2022 Administe red SARS-COV-2 Pfizer Unknown 03/25/2022 Administered Fluarix Quadrivalent IM Intramuscular 02/07/2023 Administe red Fluarix Quadrivalent - 150 IM Intramuscular 02/09/2024 Adm inistered Tetanus Unknown 07/19/2012 Pending SOCIAL HISTORY Tobacco Use: Social History Observation Description Date Details (start date - stop date) Current Smoker NA - NA Sex Assigned At : Social History Observation Description Sex Assigned At Unknown Tobacco Use/Smoking Question Answer Notes Patient is a current smoker How often do you smoke cigarettes? every day How many cigarettes a day do you smoke? 11-20 How soon after you wake up d o you smoke your first cigarette? 31-60 minutes Are you interested in quitting? Thinking about q uitting Additional Findings: Tobacco User Kiara t cigarette smoker, not currently using another form of tobacco Alcohol Screen Question Answer Notes Did you have a drink contain ing alcohol in the past year? Yes How often did you have a dri nk containing alcohol in the past year? 4 or more times a week (4 points) How many drinks did you have on a typical day when you were drinking in the past year? 1 or 2 drinks (0 point) How often did you have 6 or more drinks on one occasion in the past year? Never (0 point) Points 4 Interpretation Positive PROBLEMS Problem Type ICD Code Onset Dates Problem Status W/U Status Risk SNOMED Code Notes Problem Lymphocytosis (D72.820) Active confirmed 35185783 Problem Anxiety (F41.9) Active confirmed 847484 02 Problem Body mass index (BMI ) 35.0-35.9, adult (Z68.35) Active confirmed 592054705 Problem Smoker (F17.200) Active confirmed 78650 002 Problem Tubular adenoma of colon (D12.6) Active confirmed 994879883 Problem Essential hypertensi on (I10) Active confirmed 89640597 Problem Diabetes type 2, controlled (E11.9) Active confirmed 56323350 Problem Erectile dysfunction , unspecified erectile dysfunction type (N52.9) Active confirmed 609859890 Problem Non morbid obesity d ue to excess calories (E66.09) Active confirmed 947264012 Problem Cervical disc diseas e (M50.90) Active confirmed 707531146 Problem Barretts esophagus without dysplasia (K22.70) Active confirmed 711746423 Problem Tobacco use disorder (Z72.0) Active confirmed 26686369 Problem Tinea versicolor (B36.0) Active confirmed 62662306 Problem Dysthymia (F34.1) Active confirmed 7866 7006 Problem Acute non-recurrent maxillary sinusitis (J01.00) Active confirmed 49409208 Problem Sciatica of right si de (M54.31) Active confirmed 58463205 Problem Pure hypercholesterolemia (E78.00) Active confirmed 043612435 Problem Body mass index (BMI ) of 37.0-37.9 in adult (Z68.37) Active confirmed 229666324 Problem BMI 37.0-37.9, adult (Z68.37) Active confirmed 504906046 Problem Thoracic outlet syndrome (G54.0) Active confirmed Thoracic outlet syndrome (234771192) VITAL SIGNS Blood pressure diastolic 80 mm Hg 02/01/2024 holley ght is up 13 pounds since 12-21-23 Height 69 in 02/01/2024 weight is up 13 pounds since 12-21-23 Blood pressure systolic 148 mm Hg 02/01/2024 weig ht is up 13 pounds since 12-21-23 Weight 243 lbs 02/01/2024 weight is up 13 pounds since 12-21-23 BMI 35.88 kg/m2 02/01/2024 weight is up 13 pounds since 12-21-23 Encounters Encounter Location Date Provider Diagnosis Benji Cardenas MD [address] [place] [id number] 07/31/2023 Benji Cardenas Diabetes type 2, controlled E11.9 ; Annual physical exam Z00.00 ; Essential hypertension I10 ; Pure hypercholesterolemia E78.00 ; Back muscle spasm M62.830 ; Barretts esophagus without dysplasia K22.70 ; Erectile dysfunction, unspecified erectile dysfunction type N52.9 and Depression screening Z13.31 Benji Cardenas MD [address] [place] [id number] 07/25/2023 Benji Cardenas Blood tests for rout ine general physical examination Z00.00 ; Diabetes type 2, controlled E11.9 ; Essential hypertension I10 ; Pure hypercholesterolemia E78.00 and Lymphocytosis D72.820 Benji Cardenas MD [address] [place] [id number] 01/30/2024 Benji Cardenas Pure hypercholestero lemia E78.00 and Diabetes type 2, controlled E11.9 Benji Cardenas MD [address] [place] [id number] 05/02/2024 Benji Cardenas Diabetes type 2, controlled E11.9 and Pure hypercholesterolemia E78.00 Benji Cardenas MD [address] [place] [id number] 02/09/2024 Benji Cardenas Encounter for immuni zation Z23 Benji Cardenas MD [address] [place] [id number] 02/01/2024 Benji Cardenas Diabetes type 2, controlled E11.9 ; Smoker F17.200 and Pure hypercholesterolemia E78.00 Benji Cardenas MD [address] [place] [id number] 08/24/2023 Benji Cardenas Bronchitis J40 and O ral mucosal lesion K13.70 Benji Cardenas MD [address] [place] [id number] 09/08/2023 Benji Cardenas MD [address] [place] [address] [id number] 12/21/2023 Benji Cardenas Acute bronchitis, unspecified organism J20.9 Benji Cardenas MD [address] [place] [address] [id number] 08/14/2023 Benji Cardenas Acute non-recurrent maxillary sinusitis J01.00 Benji Cardenas MD [address] [place] [address] [id number] 12/21/2023 Benji Cardenas Acute bronchitis, unspecified organism J20.9 Benji Cardenas MD [address] [place] [address] [id number] 06/02/2023 Benji Cardenas MD [address] [place] [address] [id number] 06/30/2023 Benji Cardenas MD [address] [place] [address] [id number] 08/15/2023 Benji Cardenas MD [address] [place] [address] [id number] 10/10/2023 Benji Cardenas Diabetes type 2, controlled E11.9 Benji Cardenas MD [address] [place] [address] [id number] 12/12/2023 Benji Cardenas Pure hypercholestero lemia E78.00 ASSESSMENTS Encounter Date Diagnosis Assessment Notes Treatment Notes Treatment Clinical Notes 07/31/2023 Annual physical exam (ICD-10 - Z00.00) labs reviewed and discussed with patient 07/31/2023 Diabetes type 2, controlled (ICD-10 - E11.9) doing well, will continue current regiment 07/25/2023 Diabetes type 2, controlled (ICD-10 - E11.9) 07/25/[address] ine general physical examination (ICD-10 - Z00.00) 01/30/2024 Diabetes type 2, controlled (ICD-10 - E11.9) 01/30/2024 Pure hypercholestero lemia (ICD-10 - E78.00) 05/02/2024 Diabetes type 2, controlled (ICD-10 - E11.9) 05/02/2024 Pure hypercholestero lemia (ICD-10 - E78.00) 02/09/2024 Encounter for immunization (ICD-10 - Z23) 02/01/2024 Smoker (ICD-10 - F17.200) en dcouraged to quit 02/01/2024 Diabetes type 2, controlled (ICD-10 - E11.9) needs to diet, wll continue current regiment 08/24/2023 Bronchitis (ICD-10 - J40) or azul given to patient, pending diagnostic study 08/24/2023 Oral mucosal lesion (ICD-10 - K13.70) referral to dr schmitz/ info given to patient to call and make an appt 12/21/2023 Acute bronchitis, unspecified organism (ICD-10 - J20.9) 08/14/2023 Acute non-recurrent maxillary sinusitis (ICD-10 - J01.00) patient verbalized understanding of medication and directions for use 12/21/2023 Acute bronchitis, unspecified organism (ICD-10 - J20.9) patient verbalized understanding of medication with directions for use 10/10/2023 Diabetes type 2, controlled (ICD-10 - E11.9) 12/12/2023 Pure hypercholestero lemia (ICD-10 - E78.00) 07/31/2023 Essential hypertensi on (ICD-10 - I10) running a little high, will continue to monitor and will continue current regiment 07/25/2023 Essential hypertensi on (ICD-10 - I10) 02/01/2024 Pure hypercholestero lemia (ICD-10 - E78.00) stable, will continue current regiment 07/31/2023 Pure hypercholestero lemia (ICD-10 - E78.00) doing well on meds, will continue current regiment 07/25/2023 Pure hypercholestero lemia (ICD-10 - E78.00) 07/31/2023 Back muscle spasm (I CD-10 - M62.830) patient verbalizd understanding of medications nd directions for use 07/25/2023 Lymphocytosis (ICD-1 0 - D72.820) 07/31/2023 Barretts esophagus without dysplasia (ICD-10 - K22.70) stable, will continue current regiment 07/31/2023 Erectile dysfunction , unspecified erectile dysfunction type (ICD-10 - N52.9) stable will continue current regiment 07/31/2023 Depression screening (ICD-10 - Z13.31) nmegative screen PLAN OF TREATMENT Pending Test Test Name Order Date Electrocardiogram (EKG) 06/21/2018 Electrocardiogram (EKG) 07/04/2019 CT SHOULDER RT W&WO CONTRAST 05/31/2022 MRA UPPER EXT WITH CONT 07/05/2022 MRI CERVICAL SPINE NO CONTRAST XR CHEST 2 VIEW PA & LAT 03/11/2014 XR CHEST 2 VIEW PA & LAT 08/24/2023 CT cervical spine wo con 05/03/2022 CT shoulder RT wo con 06/02/2022 Next Appt Details Provider Name:Benji Roy ier, 07/26/2024 07:15:00 AM, [address] [place] [address], [address], [place], [place], [id number], Provider Name:Benji Roy ier, 08/02/2024 03:00:00 PM, [address] [place] [address], [address], [place], [place], [phone], Insurance Providers Payer Name Payer Address Payer Phone Subscriber Number Group Number Insured Name Patient Relationship to Insured Coverage Start Date Coverage End Date [employer] [address] [place], [place] [id number] [phone] [id number] Umer Newby Self - patient is the insured MEDICAL (GENERAL) HISTORY Medical History History ICD Code Colonoscopy and Upper Endosc opy 10/23/15 w/Dr. Zuñiga (repeat 5 years for colonoscopy and endo in a few years) APOLONIA-inhibitor cough colonoscopy and endo 2022 repaeat in 5
--- OUTSIDE RECORDS SUMMARY | 2024-05-08 01:38 | XMS_ITS | Patient Health Record ---
Author Organization [facility] Address [address] [place] [address] Care Team Providers Care Electro Optics Engineer Name Role Phone Ronald RAMIREZ, Benji Primary Care Provider Salvatore Foss Jr Unavailable ALLERGIES Allergen (clinical drug ingredient) Drug/Non Drug Allergy documented on EMR Reaction Allergy Type Onset Date Status Sulfa Unknown Drug Allergy Active REASON FOR REFERRAL No Information MEDICATIONS Medication SIG (Take, Route, Frequency, Duration) Notes Start Date End Date Status Januvia 50 MG Oral for 30 Acti ve Atorvastatin Calcium Active Valtrex PRN Active Ketoconazole PRN Active Drysol PRN Active Omeprazole 20 MG Oral for 90 A ctive metFORMIN HCl Active Ibuprofen 800 MG Oral for 30 A ctive MiraLax (colon prep) 17 GM/SCOOP mixed with Gatorade or Crystal Light Orally begin at 5:00 p.m. the day before the procedure for 1 day 12/14/2022 Active Prilosec EVERY OTHER DAY Acti ve Irbesartan-hydroCHLOROthiaz pernell 300-12.5 MG Oral for 30 Active IMMUNIZATIONS Vaccine Route Administration Date Status Comme nts Flu vaccine no Preserv 3 and > Unknown 03/29/2015 Admin istered Influenza Unknown 04/19/2022 Administered SOCIAL HISTORY Sex Assigned At : Social History Observation Description Sex Assigned At Unknown PROBLEMS Problem Type ICD Code Onset Dates Problem Status W/U Status Risk SNOMED Code Notes Problem Colon cancer screening (Z12.11) Active confirmed 947778009 Problem Jones's esophagus without dysplasia (K22.70) Active confirmed 838791672 Problem Family history of colonic polyps (Z83.71) Active confirmed 279655427 Problem Jones esophagus (K22.70) Active confirmed Jones esophagus (228922485) PLAN OF TREATMENT Future Test Test Name Order Date UPPER GI ENDOSCOPY 07/09/2015 COLONOSCOPY 07/09/2015 UPPER GI ENDOSCOPY 12/14/2022 COLONOSCOPY 12/14/2022 Insurance Providers Payer Name Payer Address Payer Phone Subscriber Number Group Number Insured Name Patient Relationship to Insured Coverage Start Date Coverage End Date [facility] [address] [place] [phone] [id number] SONA SOSA Self - patient is the insured MEDICAL (GENERAL) HISTORY Medical History History ICD Code Jones's esophagus, EGD 10/11, 1 cm danya th, no dysplasia, five-year followup hiatal hernia Diabetes mellitus type 2 hypertension Colonoscopy 10/11, normal, fi ve-year followup due to family history of colon polyps. Cervical disc disease, sciatica Surgical History Surgery Date(Month/Year) bicep reattached 2018 Umbilical hernia repair 08/14
--- OUTSIDE RECORDS SUMMARY | 2024-05-08 01:38 | XMS_ITS ---
Author Organization [facility] Address [address] [place] [address] Care Team Providers Care Grease Refining Supervisor Name Role Phone Ronald RAMIREZ, Benji Primary Care Provider Salvatore Foss Jr REASON FOR VISIT screening, barretts esophagus PROBLEMS Problem Type ICD Code Onset Dates Problem Status W/U Status Risk SNOMED Code Notes Problem Jones esophagus (K22.70) Active confirmed Jones esophagus (597000657) Encounters Encounter Location Date Provider Diagnosis [facility] [address] [place], [place] [phone] 02/03/2023 Salvatore Zuñiga Jr Colon cancer screening Z12.11 ; Colon polyp K63.5 and Joens esophagus K22.70 ASSESSMENTS Encounter Date Diagnosis Assessment Notes Treatment Notes Treatment Clinical Notes 02/03/2023 Colon cancer screening (ICD-10 - Z12.11) 02/03/2023 Colon polyp (ICD-10 - K63.5) 02/03/2023 Jones esophagus (ICD-10 - K22.70) PLAN OF TREATMENT No Information
--- OUTSIDE RECORDS SUMMARY | 2024-05-08 01:38 | XMS_ITS ---
Author Organization [facility] Address [address] [place] [address] Care Team Providers Care Wool Shearing Supervisor Name Role Phone Ronald RAMIREZ, Benji Primary Care Provider Sachin Zuñiga Jr, Salvatore Unavailable ALLERGIES Allergen (clinical drug ingredient) Drug/Non Drug Allergy documented on EMR Reaction Allergy Type Onset Date Status Sulfa Unknown Drug Allergy Active REASON FOR VISIT Patient presents today for barretts esophagus MEDICATIONS Medication SIG (Take, Route, Frequency, Duration) Notes Start Date End Date Status Januvia 50 MG Oral for 30 Acti ve Omeprazole 20 MG Oral for 90 A ctive Ibuprofen 800 MG Oral for 30 A ctive MiraLax (colon prep) 17 GM/SCOOP mixed with Gatorade or Crystal Light Orally begin at 5:00 p.m. the day before the procedure for 1 day 12/14/2022 Active Irbesartan-hydroCHLOROthiaz pernell 300-12.5 MG Oral for 30 Active Atorvastatin Calcium Active Valtrex PRN Active Ketoconazole PRN Active Drysol PRN Active metFORMIN HCl Active Prilosec EVERY OTHER DAY Acti ve PROBLEMS Problem Type ICD Code Onset Dates Problem Status W/U Status Risk SNOMED Code Notes Problem Jones's esophagus without dysplasia (K22.70) Active confirmed [id number] Problem Family history of colonic polyps (Z83.71) Active confirmed 153207944 VITAL SIGNS BMI 34.85 kg/m2 12/14/2022 Blood pressure systolic 000 mm Hg 12/15/19 23 Blood pressure diastolic 00 mm Hg 023 Height 69 in 12/14/2022 Temperature 98.7 degrees Fahrenheit 12/15/19 23 Weight 236 lbs 12/14/2022 Encounters Encounter Location Date Provider Diagnosis [facility] [address] [place] [address] 12/14/2022 Salvatore Yogesh Ragland Jones's esophagus without dysplasia K22.70 ; Colon cancer screening Z12.11 and Family history of colonic polyps Z83.71 ASSESSMENTS Encounter Date Diagnosis Assessment Notes Treatment Notes Treatment Clinical Notes 12/14/2022 Jones's esophagus without dysplasia (ICD-10 - K22.70) 12/14/2022 Colon cancer screening (ICD-10 - Z12.11) 12/14/2022 Family history of colonic polyps (ICD-10 - Z83.71) PLAN OF TREATMENT Medication Medication Name Sig Start Date Stop Date Notes MiraLax (colon prep) 17 GM/SCOOP mixed with Gatorade or Crystal Light Orally begin at 5:00 p.m. the day before the procedure for 1 day 12/14/2022 Future Test Test Name Order Date UPPER GI ENDOSCOPY 12/14/2022 COLONOSCOPY 12/14/2022 Next Appt Details Follow Up: prn, Reason: Progress Notes * Examination Category Sub-Category Detail Notes General Examination GENERAL APPEARANCE: in no ac trace distress HEAD: normocephalic EYES: sclera non-icteric NECK/THYROID: no lymphadenopathy HEART: S1, S2 normal, no mu rmurs CHEST: normal shape and exp ansion LUNGS: clear to auscultatio n bilaterally ABDOMEN: soft, nontender, non distended, bowel sounds present, no organomegaly SKIN: anicteric EXTREMITIES: no clubbing, cyanosi s, or edema PSYCH: cognitive function i ntact ORAL CAVITY: mucosa moist
--- OUTSIDE RECORDS SUMMARY | 2024-05-08 01:38 | XMS_ITS ---
Author Organization [facility] Address [address] [place] [address] Care Team Providers Care Parish Visitor Name Role Phone Benji Cardenas MD Primary Care Provider Sachin Zuñiga Jr, Salvatore Bourgeois REASON FOR VISIT pathology Encounters Encounter Location Date Provider Diagnosis [facility] [address] [place] [address] 02/08/2023 Salvatore Zuñiga Jr PLAN OF TREATMENT No Information
--- OUTSIDE RECORDS SUMMARY | 2024-05-08 01:38 | XMS_ITS ---
Author Organization Benji Cardenas MD Address [address] [place], [place] [phone] Care Team Providers Care Jewelry Sorter Name Role Phone Benji Cardenas Primary Care Provider RESULTS Component Value Reference Range Notes Liver Panel Reviewed date:05/02/2024 12:55:35 PM Interpretation: Performing Lab:[facility], [address] [place] [phone] Notes/Report: Bilirubin Total 0.4 0.0-1.0 mg/dL Bilirubin Direct 0.2 0.0-0.5 mg/dL Aspartate Amino Transferase 41 5-37 U/L Alanine Aminotransferase 54 0-40 U/L Total Protein 6.8 6.5-8.0 g/dL Albumin Level 4.3 3.5-5.0 g/dL Alkaline Phosphatase 51 39-117 U/L Glucose Fasting Reviewed date:05/02/2024 12:57:00 PM Interpretation: Performing Lab:[facility], [address] [place] [phone] Notes/Report: Glucose Fasting 185 60-99 mg/dL A fasting glucose of 126 mg/dl or greater on more than one occasion is considered diagnostic of diabetes. Lipid Panel Reviewed date:05/02/2024 03:18:42 PM Interpretation: Performing Lab:[facility], [address] [place] [phone] Notes/Report: Triglycerides 91 <150 mg/dL Desirable Triglyceride: [...] A1c Reviewed date:05/02/2024 12:56:03 PM Interpretation: Performing Lab:[facility], [address] [place] [phone] Notes/Report: Hemoglobin A1c % 7.1 <6.0 % [...] average glucose, using the formula of the V5T-Upvhaul Average Glucose study (ADAG), Diabetes Care, Vol.31,#8, 2007 REASON FOR VISIT FASTING LIPIDS, LIVER PANEL Encounters Encounter Location Date Provider Diagnosis Benji Cardenas MD [address] [place] [address] Drive [address] [place], [place] [phone] 05/02/2024 Benji Cardenas Diabetes type 2, controlled E11.9 and Pure hypercholesterolemia E78.00 ASSESSMENTS Encounter Date Diagnosis Assessment Notes Treatment Notes Treatment Clinical Notes 05/02/2024 Diabetes type 2, controlled (ICD-10 - E11.9) 05/02/2024 Pure hypercholestero lemia (ICD-10 - E78.00) PLAN OF TREATMENT Next Appt Details Provider Name:Benji nguyen, 07/26/2024 07:15:00 AM, [address] [place] [address], [address], [place], [place], [phone], Provider Name:Benji nguyen, 08/02/2024 03:00:00 PM, [address] [place] [address], [address], [place], [place], [phone],
--- OUTSIDE RECORDS SUMMARY | 2024-05-08 01:38 | XMS_ITS ---
Author Organization Benji Cardenas MD Address [address] [place] [phone] Care Team Providers Care Control Equipment Electrician Name Role Phone Benji Cardenas Primary Care Provider ALLERGIES Allergen (clinical drug ingredient) Drug/Non Drug Allergy documented on EMR Reaction Allergy Type Onset Date Status Substance with sulfonamide structure and antibacterial mechanism of action (substance) sulfa (uncoded) hives Allergy Active REASON FOR VISIT 6 month MEDICATIONS Medication SIG (Take, Route, Frequency, Duration) Notes Start Date End Date Status Viagra 50 MG 1 tablet as needed Orally Once a day for 30 day(s) 03/16/2015 Not-Taking Atorvastatin Calcium 40 MG take 1 tablet by mouth daily Orally Once a day for 90 days Active Cyclobenzaprine HCl 5 MG TAKE 1 TABLET B Y MOUTH AT BEDTIME NEEDED for 30 Active Fluconazole 150 MG 2 tablet Orally repe at in one week for 7 days Not-Ondina harshil Irbesartan-hydroCHLOROthia zide 300-12.5 MG TAKE 1 TABLET BY MOUTH ONCE A DAY Orally Once a day for 90 days Active valACYclovir HCl 1 GM TAKE 2 TABLETS BY MOUTH EVERY 12 HOURS FOR 1 DOSE Orally Once a day for 1 days Active Omeprazole 20 MG TAKE 1 CAPSULE BY MOUTH DAILY for 90 Active Tadalafil 10 MG 1 tablet as needed Orally Once a day as needed 07/06/2020 Active Ketoconazole 2 % 1 application Externally Twice a day for 30 days 03/08/2022 Active Ibuprofen 800 MG TAKE 1 TABLET BY NYA TH 3 TIMES A DAY Orally Three times a day for 30 days Active metFORMIN HCl 500 MG TAKE 2 TABLETS BY MOUTH TWICE DAILY WITH MEALS Orally 2 times a day Active Januvia 50 MG TAKE 1 TABLET BY NYA TH ONCE A DAY Active VITAL SIGNS BMI 35.88 kg/m2 02/01/2024 Blood pressure systolic 148 mm Hg 02/01/20 24 Blood pressure diastolic 80 mm Hg 024 Height 69 in 02/01/2024 Weight 243 lbs 02/01/2024 weight is up 13 pounds since 12-21-23 Encounters Encounter Location Date Provider Diagnosis Benji Cardenas MD [address] [place] [address] [address] [place], [place] [phone] 02/01/2024 Benji Cardenas Diabetes type 2, controlled E11.9 ; Smoker F17.200 and Pure hypercholesterolemia E78.00 ASSESSMENTS Encounter Date Diagnosis Assessment Notes Treatment Notes Treatment Clinical Notes 02/01/2024 Diabetes type 2, controlled (ICD-10 - E11.9) needs to diet, wll continue current regiment 02/01/2024 Smoker (ICD-10 - F17.200) en dcouraged to quit 02/01/2024 Pure hypercholestero lemia (ICD-10 - E78.00) stable, will continue current regiment PLAN OF TREATMENT Medication Medication Name Sig Start Date Stop Date Notes Atorvastatin Calcium 40 MG take 1 tablet by mouth daily Orally Once a day for 90 days metFORMIN HCl 500 MG TAKE 2 TABLETS BY M OUTH TWICE DAILY WITH MEALS Orally 2 times a day Januvia 50 MG TAKE 1 TABLET BY NYA TH ONCE A DAY Treatment Notes Assessment Notes Diabetes type 2, controlled needs to t, wll continue current regiment Smoker endcouraged to quit Pure hypercholesterolemia stable, will c ontinue current regiment Next Appt Details Provider Name:Benji nguyen, 07/26/2024 07:15:00 AM, [address], [address], [place], [place], [phone], Provider Name:Benji nguyen, 08/02/2024 03:00:00 PM, [address] [facility], [address], [place], [place], [phone], Progress Notes * Examination Category Sub-Category Detail Notes General Examination GENERAL APPEARANCE: alert, w ell hydrated, in no distress HEAD: normocephalic HEART: regular rate and rhy thm, no murmurs, rubs, gallops LUNGS: no wheezes, rales, r honchi, good air movement, clear to auscultation bilaterally SKIN: good turgor
--- OUTSIDE RECORDS SUMMARY | 2024-05-08 01:38 | XMS_ITS ---
Author Organization Benji Cardenas MD Address [address] [place] [phone] Care Team Providers Care Speech Lang Path Name Role Phone Benji Cardenas Primary Care Provider REASON FOR VISIT Flu Vac IMMUNIZATIONS Vaccine Route Administration Date Status Comme nts Fluarix Quadrivalent - 150 IM Intramuscular 02/09/2024 Adm inistered Encounters Encounter Location Date Provider Diagnosis Benji Cardenas MD [address] [place] [phone] 02/09/2024 Benji Cardenas Encounter for immunization Z23 ASSESSMENTS Encounter Date Diagnosis Assessment Notes Treatment Notes Treatment Clinical Notes 02/09/2024 Encounter for immunization (ICD-10 - Z23) PLAN OF TREATMENT Next Appt Details Provider Name:Benji nguyen, 07/26/2024 07:15:00 AM, [address] [place] [address], [address], [place], [phone], Provider Name:Benji nguyen, 08/02/2024 03:00:00 PM, [address] [place] [address], [address], [place], [phone],
== END 2024-05-02 10:34 | disposition home or self-care (01) ==
LOC: HO.LNP 10:33
PROVIDERS: Visit Provider Internal Medicine
DX: E78.00 Pure hypercholesterolemia, unspecified (principal); E11.9 Type 2 diabetes mellitus without complications
CPT/HCPCS: 80061; 80076; 82947; 83036

== ENCOUNTER 2024-07-26 11:11 | Outpatient (REF) | payer BC, SELFPAY ==
[2024-07-26 11:14] LABS: MANUAL DIFF FLAG NO
[2024-07-26 11:23] LABS: Appearance Urine Clear; Color Urine Yellow; Glucose Urine UA 250 mg/dL (Negative); Leukocyte Esterase Urine Negative (Negative); Nitrite Urine Negative (Negative); Specific Gravity - Urine 1.025 (1.005-1.025); UMIC TRIGGER UACC YES; Urine Blood Negative (Negative); Urine Ketones Negative (Negative); Urine Protein 30 (1+) mg/dL (Neg-Trace)
[2024-07-26 11:26] LABS: Bacteria Urine None Seen (None Seen); Hyaline Casts Urine 0-2 /LPF (0-2); RBC Urine 0-2 /HPF (0-2); Squamous Epithelial Cell Urine 0-2 /HPF (0-2); WBC Urine 0-5 /HPF (0-5)
[2024-07-26 11:42] LABS: Basophils Absolute Auto 0.1 X10*3/uL (0.0-0.2); Basophils Percent Auto 0.9 % (0-2); Eosinophils Absolute Auto 0.2 X10*3/uL (0.0-0.4); Eosinophils Percent Auto 1.6 % (0-4); Hemoglobin 14.9 g/dl (14.0-18.0); Imm Gran Abs Auto 0.02 X10*3/uL (0.00-0.03); Imm Gran Pct Auto 0.2 % (0.0-0.4); Lymphocytes Absolute Auto 3.5 X10*3/uL (1.2-4.9); Lymphocytes Percent Auto 38.5 % (20-40); Mean Corpuscular HGB Conc 33.9 g/dl (31.0-36.0); Mean Corpuscular Hemoglobin 31.4 pg (27.0-33.0); Mean Corpuscular Volume 92.8 fL (80.0-98.0); Mean Platelet Volume 10.3 fL (9.4-12.4); Monocytes Absolute Auto 0.4 X10*3/uL (0.1-1.2); Monocytes Percent Auto 4.3 % (2-11); Neutrophils Percent Auto 54.5 % (45-73); Platelet Count 249 X10*3/uL (160-400); Red Blood Count 4.74 X10*6/uL (4.60-5.80); Red Cell Distribution Width 12.5 % (11.0-16.0); White Blood Count 9.1 X10*3/uL (4.8-10.8)
[2024-07-26 11:55] LABS: Estimated Average Glucose 148 mg/dL; Hemoglobin A1C 197.7171 umol/L; Hemoglobin A1c % 6.8 % (<6.0); Total Hemoglobin (HGBA1C) 3879.5627 umol/L
[2024-07-26 11:58] LABS: Alanine Aminotransferase 36 U/L (0-40); Albumin Level 3.9 g/dL (3.5-5.0); Alkaline Phosphatase 57 U/L (39-117); Anion Gap 13 (12-20); Aspartate Amino Transferase 34 U/L (5-37); Bilirubin Total 0.5 mg/dL (0.0-1.0); Blood Urea Nitrogen 17 mg/dL (9-16); Calcium 8.8 mg/dL (8.4-10.2); Carbon Dioxide 27 mmol/L (22-29); Chloride 105 mmol/L (96-108); Cholesterol 147 mg/dL (<200); Estimated Glomerular Filt Rate > 60; Glucose Fasting 161 mg/dL (60-99); HDL Cholesterol 69 mg/dL (>40); LDL Cholesterol Calculated 61 mg/dL (<100); Potassium 3.4 mmol/L (3.3-5.1); Sodium 142 mmol/L (135-145); Total Protein 6.7 g/dL (6.5-8.0); Triglycerides 89 mg/dL (<150)
[2024-07-26 11:59] LABS: Creatinine Urine 190.57 mg/dL; Microalbum/Creatinine Ratio Ur 20.4 ug/mg cr (<30)
--- OUTSIDE RECORDS SUMMARY | 2024-07-26 13:09 | XMS_ITS | Patient Health Record ---
Author Organization [facility] Address [address] [place] [address] Care Team Providers Care Tailor Women'S Garment Alteration Name Role Phone Ronald RAMIREZ, Benji Primary Care Provider Salvatore Foss Jr Unavailable [phone] ALLERGIES Allergen (clinical drug ingredient) Drug/Non Drug [...] Problem Colon cancer screening (Z12.11) Active confirmed 977086645 Problem Jones's esophagus without dysplasia (K22.70) Active confirmed 819404820 Problem Family history of colonic polyps (Z83.71) Active confirmed 468543454 Problem Jones esophagus (K22.70) Active confirmed Jones esophagus (836138002) PLAN OF TREATMENT Future Test Test Name Order Date UPPER GI ENDOSCOPY 07/09/2015 COLONOSCOPY 07/09/2015 UPPER GI ENDOSCOPY 12/14/2022 COLONOSCOPY 12/14/2022 Insurance Providers Payer Name Payer Address Payer Phone Subscriber Number Group Number Insured Name Patient Relationship to Insured Coverage Start Date Coverage End Date [facility] [address] [place] [phone] [id number] SONA SOSA Self - patient is the [...]
--- OUTSIDE RECORDS SUMMARY | 2024-07-26 13:10 | XMS_ITS ---
Author Organization [facility] Address [address] [place] [address] Care Team Providers Care Psychology Tech Name Role Phone Benji Cardenas MD Primary Care Provider Sachin Zuñiga Jr, Salvatore Bourgeois REASON FOR VISIT pathology Encounters Encounter Location Date Provider Diagnosis [facility] [address] [place] [address] 02/08/2023 Salvatore Zuñiga Jr PLAN OF TREATMENT No Information
--- OUTSIDE RECORDS SUMMARY | 2024-07-26 13:10 | XMS_ITS ---
Author Organization Benji Cardenas MD Address [address] [place], [place] [id number] Care Team Providers Care Diesel Locomotive Engineer Name Role Phone Benji Cardenas Primary Care Provider Results Component Value Reference Range Notes Complete Blood Count Auto Di ff (Not yet reviewed by provider) Interpretation: Performing Lab:[facility], [address] [place] [phone] Notes/Report: White Blood Count 9.1 4.8-10.8 X10*3/uL Red Blood Count 4.74 4.60-5.80 X10*6/uL Hemoglobin 14.9 14.0-18.0 g/dl Hematocrit 44.0 42.0-52.0 % Mean Corpuscular Volume 92.8 80.0-98.0 fL Mean Corpuscular Hemoglobin 31.4 27.0-33.0 pg Mean Corpuscular HGB Conc 33.9 31.0-36.0 g/dl Red Cell Distribution Width 12.5 11.0-16.0 % Platelet Count 249 160-400 X10*3/uL Mean Platelet Volume 10.3 9.4-12.4 fL Neutrophils Percent Auto 54.5 45-73 % Imm Gran Pct Auto 0.2 0.0-0.4 % Lymphocytes Percent Auto 38.5 20-40 % Monocytes Percent Auto 4.3 2-11 % Eosinophils Percent Auto 1.6 0-4 % Basophils Percent Auto 0.9 0-2 % NRBC Pct Auto 0.0 0.0-0.2 /100WBC Neutrophils Absolute Auto 5.0 2.0-8.3 x10*3/u L Imm Gran Abs Auto 0.02 0.00-0.03 X10*3/uL Lymphocytes Absolute Auto 3.5 1.2-4.9 X10*3/u L Monocytes Absolute Auto 0.4 0.1-1.2 X10*3/uL Eosinophils Absolute Auto 0.2 0.0-0.4 X10*3/u L Basophils Absolute Auto 0.1 0.0-0.2 X10*3/uL NRBC Abs Auto 0.000 0.0-0.012 X10*3/uL Comprehensive [place]. Panel Fa st (Not yet reviewed by provider) Interpretation: Performing Lab:[facility], [address] [place] [phone] Notes/Report: Sodium 142 135-145 mmol/L Potassium 3.4 3.3-5.1 mmol/L Chloride 105 96-108 mmol/L Carbon Dioxide 27 22-29 mmol/L Anion Gap 13 12-20 Blood Urea Nitrogen 17 9-16 mg/dL Creatinine 0.74 0.5-1.4 mg/dL Estimated Glomerular Filt Rate > 60 Chronic Kidney Disease: Estimated GFR < 60 mL/min/1.73m2 Severe Kidney Disease: Estimated GFR < 15 mL/min/1.73m2 Glucose Fasting 161 60-99 mg/dL A fasting glucose of 126 mg/dl or greater on more than one occasion is considered diagnostic of diabetes. Calcium 8.8 8.4-10.2 mg/dL Bilirubin Total 0.5 0.0-1.0 mg/dL Aspartate Amino Transferase 34 5-37 U/L Alanine Aminotransferase 36 0-40 U/L Total Protein 6.7 6.5-8.0 g/dL Albumin Level 3.9 3.5-5.0 g/dL Alkaline Phosphatase 57 39-117 U/L UA ClnCatch+Micro w/rflx Cul t (Not yet reviewed by provider) Interpretation: Performing Lab:[facility], [address] [place] [phone] Notes/Report: Urine, Clean Catch Color Urine Yellow Appearance Urine Clear PH 6.0 5.0-9.0 Glucose Urine UA 250 Negative mg/dL Urine Blood Negative Negative Specific [place] - Urine 1.025 1.005-1.025 Urine Protein 30 (1+) Neg-Trace mg/dL Urine Ketones Negative Negative mg/dL Nitrite Urine Negative Negative Leukocyte Esterase Urine Negative Negative RBC Urine 0-2 0-2 /HPF WBC Urine 0-5 0-5 /HPF Squamous Epithelial Cell Urine 0-2 0-2 /HPF Bacteria Urine None Seen None Seen Hyaline Casts Urine 0-2 0-2 /LPF Lipid Panel Reviewed date:07/26/2024 12:44:03 PM Interpretation: Performing Lab:[facility], [address] [place] [phone] Notes/Report: Triglycerides 89 <150 mg/dL Desirable Triglyceride: less than 150 mg/dL Borderline High Triglyceride 150-199 mg/dL High Triglyceride: 200-499 mg/dL Very High Triglyceride: greater than or equal to 5OO mg/dL Cholesterol 147 <200 mg/dL Desirable Cholesterol: less than 200 mg/dL Borderline High Cholesterol: 200-239 mg/dL High Cholesterol: greater than 239 mg/dL LDL Cholesterol Calculated 61 <100 mg/dL Desirable LDL: less than 100 mg/dL Near Optimal/Above Optimal LDL: 110-129 mg/dL Borderline High LDL: 130-159 mg/dL High LDL: 160-189 mg/dL Very High LDL: greater than or equal to 190 mg/dL HDL Cholesterol 69 >40 mg/dL Desirable HDL: greater than 40 mg/dL Note: This HDL assay may give artificially low results in patients with liver disease. PSA,Total (Free>4and<10) Reviewed date:07/26/2024 12:43:31 PM Interpretation: Performing Lab:[facility], [address] [place] [phone] Notes/Report: PSA,Total (Free>4and<10) 0.30 0.00-4.00 ng/mL A Free PSA was not [...] Chemiluminescent Microparticle Immunoassay (CMIA) Microalbumin, Random Reviewed date:07/26/2024 12:43:39 PM Interpretation: Performing Lab:[facility], [address] [place] [phone] Notes/Report: Creatinine Urine 190.57 Microalbumin Urine 39.0 Microalbum/Creatinine Ratio Ur 20.4 <30 ug/mg cr Albumin/Creatinine Ratio Reference Ranges: Normal: < 30 ug/mg creatinine Microalbuminuria: 30 - 300 ug/mg creatinine Clinical Albuminuria: > 300 ug/mg creatinine Hemoglobin A1c Reviewed date:07/26/2024 12:43:23 PM Interpretation: Performing Lab:[facility], [address] [place] [phone] Notes/Report: Hemoglobin A1c % 6.8 <6.0 % [...] average glucose, using the formula of the U1V-Gmknblf Average Glucose study (ADAG), Diabetes Care, Vol.31,#8, Dec. 2007 REASON FOR VISIT fasting yearly labs Encounters Encounter Location Date Provider Diagnosis Benji Cardenas MD [address] [place] [address] [address] [place], [place] [phone] 07/26/2024 Benji Cardenas Blood tests for rout ine general physical examination Z00.00 ; Diabetes type 2, controlled E11.9 ; Essential hypertension I10 ; Pure hypercholesterolemia E78.00 and Lymphocytosis D72.820 Assessments Encounter Date Diagnosis (ICD Code) Assessment Notes Treatment Notes Treatment Clinical Notes Section Notes 07/26/2024 Blood tests for rout ine general physical examination (ICD-10 - Z00.00) 07/26/2024 Diabetes type 2, controlled (ICD-10 - E11.9) 07/26/2024 Essential hypertensi on (ICD-10 - I10) 07/26/2024 Pure hypercholesterolemia (ICD-10 - E78.00) 07/26/2024 Lymphocytosis (ICD-1 0 - D72.820) Plan Of Treatment Pending Test Test Name Order Date Complete Blood Count Auto Diff 5 Comprehensive [place]. Panel Fast 5 UA ClnCatch+Micro w/rflx Cult 07/26/2024 Next Appt Details Provider Name:Benji Roy ier, 08/02/2024 03:00:00 PM, [address] [place] [address], [address], [place], [place], [phone], Progress Notes * Umer SOSA ADOB:1965 (58 yo M)Acc No.[id number]:07/26/2024 Progress Note Patient:?Umer SOSA Provider:?Benji Cardenas MD :1965???Age:58 Y???Sex:Male Dilip e:07/26/2024 Address:[address] [place], [place] [id number] Subjective: * Chief Complaints: * ???1. Fasting yearly labs. * Medical History:? Objective: * Vitals:? Assessment: * Assessment: 1.?Blood tests for routine g eneral physical examination - Z00.00 (Primary)???2.?Diabetes type 2, controlled - E11.9???3.?Essential hypertension - I10???4.?Pure hypercholesterolemia - E78.00???5.?Lymphocytosis - D72.820??? Plan: * Treatment: 2.?Diabetes type 2, controll ed?LAB: Complete Blood Count Auto Diff (Collection Date & Time - 07/26/2024 07:15 AM) ?LAB: Comprehensive [place]. Panel Fast (Collection Date & Time - 07/26/2024 07:15 AM) ?LAB: UA ClnCatch+Micro w/rflx Cult (Collection Date & Time - 07/26/2024 07:15 AM) ?LAB: Lipid Panel (Collection Date & Time - 07/26/2024 07:15 AM) ?LAB: PSA,Total (Free>4and<10) (Collection Date & Time - 07/26/2024 07:15 AM) ?LAB: Microalbumin, Random (Collection Date & Time 07/26/2024 07:15 AM) ?LAB: Hemoglobin A1c (Collection Date & Time 07/26/2024 07:15 AM) 3.?Essential hypertension?LAB: Complete Blood Count Auto Diff (Collection Date & Time 07/26/2024 07:15 AM) ?LAB: Comprehensive [place]. Panel Fast (Collection Date & Time 07/26/2024 07:15 AM) ?LAB: UA ClnCatch+Micro w/rflx Cult (Collection Date & Time 07/26/2024 07:15 AM) ?LAB: Lipid Panel (Collection Date & Time 07/26/2024 07:15 AM) ?LAB: PSA,Total (Free>4and<10) (Collection Date & Time - 07/26/2024 07:15 AM) ?LAB: Microalbumin, Random (Collection Date & Time 07/26/2024 07:15 AM) ?LAB: Hemoglobin A1c (Collection Date & Time 07/26/2024 07:15 AM) 4.?Pure hypercholesterolemia ?LAB: Complete Blood Count Auto Diff (Collection Date & Time - 07/26/2024 07:15 AM) ?LAB: Comprehensive [place]. Panel Fast (Collection Date & Time 07/26/2024 07:15 AM) ?LAB: UA ClnCatch+Micro w/rflx Cult (Collection Date & Time - 07/26/2024 07:15 AM) ?LAB: Lipid Panel (Collection Date & Time - 07/26/2024 07:15 AM) ?LAB: PSA,Total (Free>4and<10) (Collection Date & Time - 07/26/2024 07:15 AM) ?LAB: Microalbumin, Random (Collection Date & Time - 07/26/2024 07:15 AM) ?LAB: Hemoglobin A1c (Collection Date & Time - 07/26/2024 07:15 AM) 5.?Lymphocytosis?LAB: Complete Blood Count Auto Diff (Collection Date & Time - 07/26/2024 07:15 AM) ?LAB: Comprehensive [place]. Panel Fast (Collection Date & Time - 07/26/2024 07:15 AM) ?LAB: UA ClnCatch+Micro w/rflx Cult (Collection Date & Time - 07/26/2024 07:15 AM) ?LAB: Lipid Panel (Collection Date & Time - 07/26/2024 07:15 AM) ?LAB: PSA,Total (Free>4and<10) (Collection Date & Time - 07/26/2024 07:15 AM) ?LAB: Microalbumin, Random (Collection Date & Time - 07/26/2024 07:15 AM) ?LAB: Hemoglobin A1c (Collection Date & Time - 07/26/2024 07:15 AM) * Procedure Codes:?70062 VENIP UNCT, ROUTINE* * * The named appointment provid er may or may not be the originator of this progress note, and it is not deemed complete until electronically signed by the appointment provider. Sign off status: Pending * Provider:?Benji Cardenas MD Date:?0 07/26/2024 Generated for Gillian al/Guillermo/Ewelinasmitting on:?07/26/2024 01:10 PM EST
--- OUTSIDE RECORDS SUMMARY | 2024-07-26 13:10 | XMS_ITS ---
Author Organization Benji Cardenas MD Address [address] [place] [phone] Care Team Providers Care Housekeeping Supervisor Hotel Name Role Phone Benji Cardenas Primary Care Provider Allergies Allergen (clinical drug ingredient) Drug/Non Drug Allergy documented on EMR Reaction Allergy Type Onset Date Status Substance with sulfonamide structure and antibacterial mechanism of action (substance) sulfa (uncoded) hives Allergy Active REASON FOR VISIT , CHEST CONGESTION , COVID NEGATIVE c/o had chills last week, SOB, runny nose, x 2 weeks tested forCovid last week, Video [phone] Medications Medication SIG (Take, Route, Frequency, Duration) Notes Start Date End Date Status Cyclobenzaprine HCl 5 MG TAKE 1 TABLET B Y MOUTH AT BEDTIME NEEDED for 30 Not-Taking guaiFENesin-Codeine 100-10 MG/5ML 10 mL as needed Orally every 4 hrs for 10 days 06/24/2024 Active Atorvastatin Calcium 40 MG take 1 tablet by mouth daily Orally Once a day for 90 days Active Ibuprofen 800 MG TAKE 1 TABLET BY NYA TH 3 TIMES A DAY Orally Three times a day for 30 days Active Januvia 50 MG TAKE 1 TABLET BY NYA TH ONCE A DAY Active Omeprazole 20 MG TAKE 1 CAPSULE BY MOUTH DAILY for 90 Active Irbesartan-hydroCHLOROthia zide 300-12.5 MG TAKE 1 TABLET BY MOUTH ONCE A DAY Orally Once a day for 90 days Active Ketoconazole 2 % 1 application Externally Twice a day for 30 days 03/08/2022 Active valACYclovir HCl 1 GM TAKE 2 TABLETS BY MOUTH EVERY 12 HOURS FOR 1 DOSE Orally Once a day for 1 days Active metFORMIN HCl 500 MG TAKE 2 TABLETS BY MOUTH TWICE DAILY WITH MEALS Orally 2 times a day Active Zithromax Z-Randy 250 MG 2 tablet on the f irst day, then 1 tablet daily for 4 days Orally Once a day for 5 day(s) 07/01/2024 Active Viagra 50 MG 1 tablet as needed Orally Once a day for 30 day(s) 03/16/2015 Not-Taking Tadalafil 10 MG 1 tablet as needed Orally Once a day as needed 07/06/2020 Active Fluconazole 150 MG 2 tablet Orally repe at in one week for 7 days Not-Ondina chua Vital Signs Height 69 in 07/01/2024 weight is 243 BP not taken t tamiko no temp Encounters Encounter Location Date Provider Diagnosis Benji Cardenas MD [address] [place] [address] [place] [phone] 07/01/2024 Benji Cardenas Acute recurrent maxillary sinusitis J01.01 Assessments Encounter Date Diagnosis (ICD Code) Assessment Notes Treatment Notes Treatment Clinical Notes Section Notes 07/01/2024 Acute recurrent maxillary sinusitis (ICD-10 - J01.01) patient verbalized understanding of medication and directions for use Plan Of Treatment Medication Medication Name Sig Start Date Stop Date Notes Zithromax Z-Randy 250 MG 2 tablet on the f irst day, then 1 tablet daily for 4 days Orally Once a day for 5 day(s) 07/01/2024 Treatment Notes Assessment Notes Acute recurrent maxillary sinusitis kody ent verbalized understanding of medication and directions for use Next Appt Details Provider Name:Benji nguyen, 08/02/2024 03:00:00 PM, [address] [place] [address], [address], [place], [place], [phone], Progress Notes * Umer SOSA ADOB:1965 (58 yo M)Acc No.[id number]:07/01/2024 Patient:?Umer SOSA Provider:?Benji Cardenas MD :1965???Age:58 Y???Sex:Male Dilip e:07/01/2024 Address:[address] [place] [address], [facility] Subjective: * Chief Complaints: * ???, CHEST CONGESTION , COVI D NEGATIVE c/o had chills last week, SOB, runny nose, x 2 weeks tested for Covid last weekVideo [phone] * HPI: ???Symptom(s):?Telehealth?Location of provider rendering services:?[address] [place] [address] Drive, [address],?Location of patient:?other (please specify) At work in [place],?Patient identification confirmed using:?Name, ,?Telehealth method:?Video conference where patient is visible to the provider of care,?Consent:?Patient verbally consented to treatment, Patient verbally consented to billing insurance company, Patient informed of any privacy concerns related to method of visit,?Total time spend talking with patient (minutes)?0.?patient is a 58 yo male video te;formerly [facility], later [facility], had cough and runny nose. productive cough. covid negative last week. / still coughing and sneezing and yellow phlegm. * ROS:?General/Constitutional:?Denies?Chills.?Denies?Fatigue.?Denies?Fever.?Denies?Headache.?ENT:?Patient denies?decreased sense of smell, any loss of taste, sore throat.?Respiratory:?Admits?Cough.?Denies?Shortness of breath at rest.?Denies?Shortness of breath with exertion.?Admits?Sputum production.?Admits?Wheezing.?Gastrointestinal:?Denies?Diarrhea.?Denies?Nausea.?Musculoskeletal:?Patient denies?muscle aches.?Peripheral Vascular:?Patient denies?red and blue toes.? * Medical History:? * Surgical History:? * Hospitalization/Major Diagno stic Procedure:? * Medications:?TakingTadalafil 10 MG Tablet 1 tablet as needed Orally Once a day as needed Ketoconazole 2 % Cream 1 application Externally Twice a day valACYclovir HCl 1 GM Tablet TAKE 2 TABLETS BY MOUTH EVERY 12 HOURS FOR 1 DOSE Orally Once a day Omeprazole 20 MG Capsule Delayed Release TAKE 1 CAPSULE BY MOUTH DAILY Irbesartan-hydroCHLOROthiazide 300-12.5 MG Tablet TAKE 1 TABLET BY MOUTH ONCE A DAY Orally Once a day metFORMIN HCl 500 MG Tablet TAKE 2 TABLETS BY MOUTH TWICE DAILY WITH MEALS Orally 2 times a day Januvia 50 MG Tablet TAKE 1 TABLET BY MOUTH ONCE A DAY Atorvastatin Calcium 40 MG Tablet take 1 tablet by mouth daily Orally Once a day Ibuprofen 800 MG Tablet TAKE 1 TABLET BY MOUTH 3 TIMES A DAY Orally Three times a day guaiFENesin-Codeine 100-10 MG/5ML Solution 10 mL as needed Orally every 4 hrs Taking Tadalafil 10 MG Tablet 1 tablet as needed Orally Once a day as needed Taking Ketoconazole 2 % Cream 1 application Externally Twice a day Taking valACYclovir HCl 1 GM Tablet TAKE 2 TABLETS BY MOUTH EVERY 12 HOURS FOR 1 DOSE Orally Once a day Taking Omeprazole 20 MG Capsule Delayed Release TAKE 1 CAPSULE BY MOUTH DAILY Taking Irbesartan-hydroCHLOROthiazide 300-12.5 MG Tablet TAKE 1 TABLET BY MOUTH ONCE A DAY Orally Once a day Taking metFORMIN HCl 500 MG Tablet TAKE 2 TABLETS BY MOUTH TWICE DAILY WITH MEALS Orally 2 times a day Taking Januvia 50 MG Tablet TAKE 1 TABLET BY MOUTH ONCE A DAY Taking Atorvastatin Calcium 40 MG Tablet take 1 tablet by mouth daily Orally Once a day Taking Ibuprofen 800 MG Tablet TAKE 1 TABLET BY MOUTH 3 TIMES A DAY Orally Three times a day Taking guaiFENesin-Codeine 100-10 MG/5ML Solution 10 mL as needed Orally every 4 hrs Not-Taking/PRNCyclobenzaprine HCl 5 MG Tablet TAKE 1 TABLET BY MOUTH AT BEDTIME NEEDED Fluconazole 150 MG Tablet 2 tablet Orally repeat in one week Viagra 50 MG Tablet 1 tablet as needed Orally Once a day Medication List reviewed and reconciled with the patientNot-Taking/PRN Cyclobenzaprine HCl 5 MG Tablet TAKE 1 TABLET BY MOUTH AT BEDTIME NEEDED Not-Taking/PRN Fluconazole 150 MG Tablet 2 tablet Orally repeat in one week Not-Taking/PRN Viagra 50 MG Tablet 1 tablet as needed Orally Once a day Medication List reviewed and reconciled with the patient * Allergies:?sulfa: hivesyes[A llergies Verified] Objective: * Vitals:?Ht: 69. weight is 243? BP? not taken? today no temp. * Examination: ???General Examination: ?GENERAL APPEARANCE:?alert, well hydrated, in no distress.? Assessment: * Assessment: 1.?Acute recurrent maxillary sinusitis - J01.01 (Primary)??? Plan: * Treatment: * Procedure Codes:? * * Sign off status: Completed true * Provider:?Benji Cardenas MD Date:?0 07/01/2024 Generated for Gillian al/Guillermo/Elisabeth on:?07/26/2024 01:10 PM EST History and Physical Notes * HPI (History of Present Illness) Category Sub-Category Detail Notes Category Not es Symptom(s) Telehealth Location of [facility] rendering services:: [address] [place] [address] Drive, [address] patient is a 58 yo male video te;ehelt visit, had cough and runny nose. productive cough. covid negative last week. / still coughing and sneezing and yellow phlegm Location of patient:: other (please spec clara) At work in [place] Patient identification confirmed using:: Name, Telehealth method:: Video co nference where patient is visible to the provider of care Consent:: Patient verbally c onsented to treatment, Patient verbally consented to billing insurance company, Patient informed of any privacy concerns related to method of visit Total time spend talking with patient (m inutes): 0 Examination Category Sub-Category Detail Notes Category Not es General Examination GENERAL APPEARANCE: alert, w ell hydrated, in no distress
--- OUTSIDE RECORDS SUMMARY | 2024-07-26 13:10 | XMS_ITS ---
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
--- OUTSIDE RECORDS SUMMARY | 2024-07-26 13:10 | XMS_ITS ---
Author Organization Benji Cardenas MD Address [address] [place] [phone] Care Team Providers Care Bakeshop Cleaner Name Role Phone Benji Cardenas Primary Care Provider REASON FOR VISIT Cough Medicine Medications Medication SIG (Take, Route, Frequency, Duration) Notes Start Date End Date Status guaiFENesin-Codeine 100-10 MG/5ML 10 mL as needed Orally every 4 hrs for 10 days 06/24/2024 Active Encounters Encounter Location Date Provider Diagnosis Benji Cardenas MD [address] [place] [phone] 06/24/2024 Benji Cardenas Plan Of Treatment Medication Medication Name Sig Start Date Stop Date Notes guaiFENesin-Codeine 100-10 MG/5ML 10 mL as needed Orally every 4 hrs for 10 days 06/24/2024 Next Appt Details Provider Name:Benji Roy ier, 08/02/2024 03:00:00 PM, [address], [address], [place], [place], [phone], Progress Notes * Umer SOSA ADOB:1965 (58 yo M)Acc No.[id number]:06/24/2024 Patient:?Umer SOSA :1965???Age:58 Y???Sex:Male Address:[address] [place] [address] * Refills? Start guaiFENesin-Codeine Solution, 100-10 MG/5ML, Orally, 600 ML, 10 mL as needed, every 4 hrs, 10 days * true * Date:? Generated for Gillian al/Guillermo/eTransmitting on:?07/26/2024 01:09 PM EST
== END 2024-07-26 11:12 | disposition home or self-care (01) ==
LOC: HO.LNP 11:11
PROVIDERS: Visit Provider Internal Medicine
DX: Z00.00 Encounter for general adult medical examination without abnormal findings (principal); E11.9 Type 2 diabetes mellitus without complications; I10 Essential (primary) hypertension; E78.00 Pure hypercholesterolemia, unspecified; D72.820 Lymphocytosis (symptomatic); Z12.5 Encounter for screening for malignant neoplasm of prostate
CPT/HCPCS: 80053; 80061; 81001; 82043; 82570; 83036; 84153; 85025

== ENCOUNTER 2025-02-03 10:28 | Outpatient (REF) | payer BC, SELFPAY ==
--- OUTSIDE RECORDS SUMMARY | 2024-08-02 04:00 | XMS_ITS ---
Author Organization Benji Cardenas MD Address [address] [place] [phone] Care Team Providers Care Regulatory Attorney Name Role Phone Benji Cardenas Primary Care Provider Allergies Allergen (clinical drug ingredient) Drug/Non Drug Allergy documented on EMR Reaction Allergy Type Onset Date Status Substance with sulfonamide structure and antibacterial mechanism of action (substance) sulfa (uncoded) hives Allergy Active Results Component Value Reference Range Notes Occult Blood, Stool, Guaiac Reviewed date:08/02/2024 09:50:20 AM Interpretation:Negative Performing Lab: Notes/Report: Negative Occult Blood, Stool, Guaiac Neg REASON FOR VISIT annual visit Medications Medication SIG (Take, Route, Frequency, Duration) Notes Start Date End Date Status metFORMIN HCl 500 MG TAKE 2 TABLETS BY MOUTH TWICE DAILY WITH MEALS Active Omeprazole 20 MG TAKE 1 CAPSULE BY MOUTH DAILY Active Januvia 50 MG TAKE 1 TABLET BY NYA TH ONCE A DAY Active Atorvastatin Calcium 40 MG take 1 tablet by mouth daily Orally Once a day Active Viagra 50 MG 1 tablet as needed Orally Once a day for 30 day(s) 03/16/2015 Not-Taking Cyclobenzaprine HCl 5 MG TAKE 1 TABLET B Y MOUTH AT BEDTIME NEEDED for 30 Not-Taking Fluconazole 150 MG 2 tablet Orally repe at in one week for 7 days Not-Takin g Tadalafil 10 MG 1 tablet as needed Orally Once a day as needed 07/06/2020 Active Irbesartan-hydroCHLOROthia zide 300-12.5 MG TAKE 1 TABLET BY MOUTH ONCE A DAY Orally Once a day Active Ibuprofen 800 MG TAKE 1 TABLET BY NYA TH 3 TIMES A DAY Orally Three times a day for 30 days Active valACYclovir HCl 1 GM TAKE 2 TABLETS BY MOUTH EVERY 12 HOURS FOR 1 DOSE Orally Once a day for 1 days Active Ketoconazole 2 % 1 application Externally Twice a day for 30 days 03/08/2022 Active Social History Tobacco Use: Social History Observation Description Date Details (start date - stop date) Current Smoker NA - NA Tobacco Use/Smoking Question Answer Notes Patient is a current smoker How often do you smoke cigarettes? every day How many cigarettes a day do you smoke? 11-20 How soon after you wake up d o you smoke your first cigarette? 31-60 minutes Are you interested in quitting? Thinking about q uitting Additional Findings: Tobacco User Curren t cigarette smoker, not currently using another [...] Never (0 point) Points 4 Interpretation Positive Section Notes: Patient feels Chantix is not helping still smoking a pack a day. Vital Signs Blood pressure systolic 158 mm Hg 08/03/19 25 Blood pressure diastolic 100 mm Hg 025 Height 69 in 08/02/2024 Weight 236 lbs 08/02/2024 BMI 34.85 kg/m2 08/02/2024 weight is down 7 pounds [facility] jair 9-5-24 Encounters Encounter Location Date Provider Diagnosis Benji Cardenas MD [address] [place] [address] Drive [address] [place], [place] [phone] 08/02/2024 Benji Cardenas Diabetes type 2, controlled E11.9 ; Annual physical exam Z00.00 ; Tubular adenoma of colon D12.6 ; Essential hypertension I10 ; Erectile dysfunction, unspecified erectile dysfunction type N52.9 ; Barretts esophagus without dysplasia K22.70 ; Pure hypercholesterolemia E78.00 ; Colon cancer screening Z12.11 and Depression screening Z13.31 Assessments Encounter Date Diagnosis (ICD Code) Assessment Notes Treatment Notes Treatment Clinical Notes Section Notes 08/02/2024 Diabetes type 2, controlled (ICD-10 - E11.9) good a1c, will cntinue current regiment 08/02/2024 Annual physical exam (ICD-10 - Z00.00) labs reviewed and discussed woth patient 08/02/2024 Tubular adenoma of colon (ICD-10 - D12.6) had colonoscopy 2 years ago. due in 3 years 08/02/2024 Essential hypertensi on (ICD-10 - I10) stable, will continue current regiment 08/02/2024 Erectile dysfunction , unspecified erectile dysfunction type (ICD-10 - N52.9) stable, will continue current regiment 08/02/2024 Barretts esophagus without dysplasia (ICD-10 - K22.70) doing well, will continue current regiment 08/02/2024 Pure hypercholesterolemia (ICD-10 - E78.00) stable, will contiue current regiment 08/02/2024 Colon cancer screeni ng (ICD-10 - Z12.11) guaiac negative 08/02/2024 Depression screening (ICD-10 - Z13.31) negative screen Plan Of Treatment Medication Medication Name Sig Start Date Stop Date Notes metFORMIN HCl 500 MG TAKE 2 TABLETS BY M OUTH TWICE DAILY WITH MEALS Omeprazole 20 MG TAKE 1 CAPSULE BY MO UTH DAILY Januvia 50 MG TAKE 1 TABLET BY NYA TH ONCE A DAY Atorvastatin Calcium 40 MG take 1 tablet by mouth daily Orally Once a day Tadalafil 10 MG 1 tablet as needed O rally Once a day as needed 07/06/2020 Irbesartan-hydroCHLOROthiazi de 300-12.5 MG TAKE 1 TABLET BY MOUTH ONCE A DAY Orally Once a day Treatment Notes Assessment Notes Diabetes type 2, controlled good a1c, wi ll cntinue current regiment Annual physical exam labs reviewed and d iscussed woth patient Tubular adenoma of colon had colonoscopy 2 years ago. due in 3 years Essential hypertension stable, will cont inue current regiment Erectile dysfunction, unspec ified erectile dysfunction type stable, will continue current regiment Barretts esophagus without dysplasia doi ng well, will continue current regiment Pure hypercholesterolemia stable, will c ontiue current regiment Colon cancer screening guaiac negative Depression screening negative screen Future Test Test Name Order Date Liver Panel 02/02/2025 Lipid Panel 02/02/2025 Hemoglobin A1c 02/02/2025 Next Appt Details Follow Up: 6 Months, Reason: Provider Name:Benji nguyen, 02/11/2025 03:00:00 PM, [address] [place] [address], [address], [phone], Provider Name:Benji nguyen, 07/28/2025 07:15:00 AM, [address] [place] [address], [place] [address], [place], [place], [phone], Provider Name:Benji nguyen, 08/04/2025 03:30:00 PM, [address] [place] [address], [place] [address], [place], [place], [phone], Progress Notes * Umer SOSA ADOB:1965 (58 yo M)Acc No.[id number]:08/02/2024 Progress Notes Patient: Umer OLIVAS Missy Provider: Sher Cardenas MD :1965 A ge:58 Y S ex:Male Date:08/02/2024 Address:[address] [place], [place] [phone] Subjective: * Chief Complaints: * A nnual visit * HPI: D epression Screening: PHQ-9 L ittle interest or pleasure in doing things N ot at all, F eeling down, depressed, or hopeless N ot at all, T rouble falling or staying asleep, or sleeping too much N ot at all, F eeling tired or having little energy N ot at all, P oor appetite or overeating N ot at all, F eeling bad about yourself or that you are a failure, or have let yourself or your family down N ot at all, T rouble concentrating on things, such as reading the newspaper or watching television N ot at all, M oving or speaking so slowly that other people could have noticed; or the opposite, being so fidgety or restless that you have been moving around a lot more than usual N ot at all, T houghts that you would be better off or of hurting yourself in some way N ot at all, T otal Score 0 . I nterpretation and Intervention D epression Screening Findings N egative, F ollow-Up for Depression : review of PHQ-9 found negative result, no follow-up needed. C ommunication Needs: Communication Needs D oes the patient have a hearing impairment N o, D oes the patient have a vision impairment? Y es, I f yes, what is the vision impairment? G lasses, D oes the patient have a cognition impairment? N o. S CHACE Questions: SDOH Questions I n the past year have you been worried about losing housing? N o, I n the past year have you or any family members you live with been unable to get any of the following when it was really needed? Check all that apply: N one. S ymptom(s): patient is a 58 yo male ehre for annual visit with review of recent labs and follow up of chronic issues. * ROS: G eneral/Constitutional: Change in appetite d enies. C hills d enies. F ever d enies. O phthalmologic: Blurred vision d enies. D ischarge d enies. P ain d enies. E NT: Decreased hearing d enies. S ore throat d enies.?Swollen glands d enies. E ndocrine: Cold intolerance d enies. E xcessive thirst d enies. H eat intolerance d enies. W eight loss d enies. R espiratory: Cough d enies. S hortness of breath at rest d enies. S hortness of breath with exertion d enies. W heezing d enies. C ardiovascular: Chest pain at rest d enies. C hest pain with exertion?denies. I rregular heartbeat d enies. S hortness of breath d enies. ? G astrointestinal: Abdominal pain d enies. C hange in bowel habits d enies. D iarrhea d enies. N ausea d enies. R ectal bleeding d enies. V omiting d enies . G enitourinary: Blood in urine d enies. D ifficulty urinating d enies. F requent urination d enies. M usculoskeletal: Painful joints d enies. W eakness d enies. ? S kin: Dry skin d enies. I tching d enies. D enies?Mole(s), changes in moles, new moles or any lesions of concern. D enies P hotosensitivity. R kyra d enies. N eurologic: Dizziness d enies. F ainting d enies. H eadache?denies. * Medical History: * Surgical History: * Hospitalization/Major Diagno stic Procedure: * Family History: F ather: 82 yrs. M other: 87 yrs, diagnosed with Hypertension, Diabetes.?3 sister(s) . . Father-COPD MOTHER- CVA, Denies mental health/substance abuse family history, Denies mental health/substance abuse family history, Denies mental health/substance abuse family history, Denies mental health/substance abuse family history. * Social History: T obacco Use: T obacco Use/Smoking P atient is a c urrent smoker, H ow often do you smoke cigarettes? e very day, H ow many cigarettes a day do you smoke? 1 1-20, H ow soon after you wake up do you smoke your first cigarette? 3 1-60 minutes, A re you interested in quitting? T hinking about quitting, A dditional Findings: Tobacco User C urrent cigarette smoker, not currently using another form of tobacco. D rugs/Alcohol: A lcohol Screen D id you have a drink containing alcohol in the past year? Y es, H ow often did you have a drink containing alcohol in the past year? 4 or more times a week (4 points), H ow many drinks did you have on a typical day when you were drinking in the past year? 1 or 2 drinks (0 point), H ow often did you have 6 or more drinks on one occasion in the past year? N ever (0 point), P oints 4 , I nterpretation P ositive. M iscellaneous: C affeine: yes, frequency:, 2-3 cups per day. Children: no. Community involvements: yes. Exercise: no. Home smoke detector use: yes. Housing: renting. Living with: spouse. Marital status: . Occupation: works full-time. Pets: none. Travel outside of the [place]: no. P atient feels Chantix is not helping still smoking a pack a day. * Medications: T akingTadalafil 10 MG Tablet 1 tablet as needed Orally Once a day as needed Ketoconazole 2 % Cream 1 application Externally Twice a day valACYclovir HCl 1 GM Tablet TAKE 2 TABLETS BY MOUTH EVERY 12 HOURS FOR 1 DOSE Orally Once a day Irbesartan-hydroCHLOROthiazide 300-12.5 MG Tablet TAKE 1 TABLET BY MOUTH ONCE A DAY Orally Once a day Januvia 50 MG Tablet TAKE 1 TABLET BY MOUTH ONCE A DAY Atorvastatin Calcium 40 MG Tablet take 1 tablet by mouth daily Orally Once a day Ibuprofen 800 MG Tablet TAKE 1 TABLET BY MOUTH 3 TIMES A DAY Orally Three times a day metFORMIN HCl 500 MG Tablet TAKE 2 TABLETS BY MOUTH TWICE DAILY WITH MEALS Omeprazole 20 MG Capsule Delayed Release TAKE 1 CAPSULE BY MOUTH DAILY Taking Tadalafil 10 MG Tablet 1 tablet as needed Orally Once a day as needed Taking Ketoconazole 2 % Cream 1 application Externally Twice a day Taking valACYclovir HCl 1 GM Tablet TAKE 2 TABLETS BY MOUTH EVERY 12 HOURS FOR 1 DOSE Orally Once a day Taking Irbesartan- hydroCHLOROthiazide 300-12.5 MG Tablet TAKE 1 TABLET BY MOUTH ONCE A DAY Orally Once a day Taking Januvia 50 MG Tablet TAKE 1 TABLET BY MOUTH ONCE A DAY Taking Atorvastatin Calcium 40 MG Tablet take 1 tablet by mouth daily Orally Once a day Taking Ibuprofen 800 MG Tablet TAKE 1 TABLET BY MOUTH 3 TIMES A DAY Orally Three times a day Taking metFORMIN HCl 500 MG Tablet TAKE 2 TABLETS BY MOUTH TWICE DAILY WITH MEALS Taking Omeprazole 20 MG Capsule Delayed Release TAKE 1 CAPSULE BY MOUTH DAILY Not- Taking/PRNCyclobenzaprine HCl 5 MG Tablet TAKE 1 TABLET BY MOUTH AT BEDTIME NEEDED Fluconazole 150 MG Tablet 2 tablet Orally repeat in one week Viagra 50 MG Tablet 1 tablet as needed Orally Once a day Not-Taking/PRN Cyclobenzaprine HCl 5 MG Tablet TAKE 1 TABLET BY MOUTH AT BEDTIME NEEDED Not-Taking/PRN Fluconazole 150 MG Tablet 2 tablet Orally repeat in one week Not-Taking/PRN Viagra 50 MG Tablet 1 tablet as needed Orally Once a day DiscontinuedguaiFENesin-Codeine 100-10 MG/5ML Solution 10 mL as needed Orally every 4 hrs Zithromax Z-Randy 250 MG Tablet 2 tablet on the first day, then 1 tablet daily for 4 days Orally Once a day Medication List reviewed and reconciled with the patientDiscontinued guaiFENesin-Codeine 100-10 MG/5ML Solution 10 mL as needed Orally every 4 hrs Discontinued Zithromax Z-Randy 250 MG Tablet 2 tablet on the first day, then 1 tablet daily for 4 days Orally Once a day Medication List reviewed and reconciled with the patient * Allergies: s ulfa: hivesyes[Allergies Verified] Objective: * Vitals: H t: 69, Wt: 236, BMI:34.85, BP:158/100, Repeat BP:138/88, Wt-k.05. weight is down 7 pounds since 02-01-24. * P ast Orders: L ab:PSA,Total (Free>4and<10) (Order Date - 07/26/2024) (Collection Date & Time - 07/26/2024 07:15 AM) Value Reference Range PSA,Total (Free>4and<10) 0.30 0.00-4.00 - ng/ mL L ab:Microalbumin, Random (Order Date - 07/26/2024) (Collection Date & Time - 07/26/2024 07:15 AM) Value Reference Range Creatinine Urine 190.57 - mg/dL Microalbumin Urine 39.0 - mg/L Microalbum Creatinine Ratio Ur 20.4 <30 - ug/ mg cr L ab:Hemoglobin A1c (Order Date - 07/26/2024) (Collection Date & Time - 07/26/2024 07:15 AM) Value Reference Range Hemoglobin A1c % 6.8 H <6.0 - % Estimated Average Glucose 148 - mg/dL L ab:Lipid Panel (Order Date - 07/26/2024) (Collection Date & Time - 07/26/2024 07:15 AM) Value Reference Range Triglycerides 89 <150 - mg/dL Cholesterol 147 <200 - mg/dL LDL Cholesterol Calculated 61 <100 - mg/dL HDL Cholesterol 69 >40 - mg/dL L ab:Complete Blood Count Auto Diff (Order Date - 07/26/2024) (Collection Date & Time - 07/26/2024 07:15 AM) Value Reference Range White Blood Count 9.1 4.8-10.8 - X10*3/uL Red Blood Count 4.74 4.60-5.80 - X10*6/uL Hemoglobin 14.9 14.0-18.0 - g/dl Hematocrit 44.0 42.0-52.0 - % Mean Corpuscular Volume 92.8 80.0-98.0 - fL Mean Corpuscular Hemoglobin 31.4 27.0-33.0 - pg Mean Corpuscular HGB Conc 33.9 31.0-36.0 - g/ dl Red Cell Distribution Width 12.5 11.0-16.0 - % Platelet Count 249 160-400 - X10*3/uL Mean Platelet Volume 10.3 9.4-12.4 - fL Neutrophils Percent Auto 54.5 45-73 - % Imm Gran Pct Auto 0.2 0.0-0.4 - % Lymphocytes Percent Auto 38.5 20-40 - % Monocytes Percent Auto 4.3 2-11 - % Eosinophils Percent Auto 1.6 0-4 - % Basophils Percent Auto 0.9 0-2 - % NRBC Pct Auto 0.0 0.0-0.2 - /100WBC Neutrophils Absolute Auto 5.0 2.0-8.3 - x10* 3/uL Imm Gran Abs Auto 0.02 0.00-0.03 - X10*3/uL Lymphocytes Absolute Auto 3.5 1.2-4.9 - X10* 3/uL Monocytes Absolute Auto 0.4 0.1-1.2 - X10*3/ uL Eosinophils Absolute Auto 0.2 0.0-0.4 - X10* 3/uL Basophils Absolute Auto 0.1 0.0-0.2 - X10*3/ uL NRBC Abs Auto 0.000 0.0-0.012 - X10*3/uL L ab:UA ClnCatch+Micro w/rflx Cult (Order Date - 07/26/2024) (Collection Date & Time - 07/26/2024 07:15 AM) Value Reference Range Color Urine Yellow - Appearance Urine Clear - PH 6.0 5.0-9.0 - Glucose Urine UA 250 A Negative - mg/dL Urine Blood Negative Negative - Specific [place] - Urine 1.025 1.005-1.025 - Urine Protein 30 (1+) A Neg-Trace - mg/dL Urine Ketones Negative Negative - mg/dL Nitrite Urine Negative Negative - Leukocyte Esterase Urine Negative Negative - RBC Urine 0-2 0-2 - /HPF WBC Urine 0-5 0-5 - /HPF Squamous Epithelial Cell Urine 0-2 0-2 - /HP F Bacteria Urine None Seen None Seen - Hyaline Casts Urine 0-2 0-2 - /LPF L ab:Comprehensive [place]. Panel Fast (Order Date - 07/26/2024) (Collection Date & Time - 07/26/2024 07:15 AM) Value Reference Range Sodium 142 135-145 - mmol/L Bilirubin Total 0.5 0.0-1.0 - mg/dL Aspartate Amino Transferase 34 5-37 - U/L Alanine Aminotransferase 36 0-40 - U/L Total Protein 6.7 6.5-8.0 - g/dL Albumin Level 3.9 3.5-5.0 - g/dL Alkaline Phosphatase 57 39-117 - U/L Potassium 3.4 3.3-5.1 - mmol/L Chloride 105 96-108 - mmol/L Carbon Dioxide 27 22-29 - mmol/L Anion Gap 13 12-20 - Blood Urea Nitrogen 17 H 9-16 - mg/dL Creatinine 0.74 0.5-1.4 - mg/dL Estimated Glomerular Filt Rate > 60 - Glucose Fasting 161 H 60-99 - mg/dL Calcium 8.8 8.4-10.2 - mg/dL * Examination: G eneral Examination: GENERAL APPEARANCE: w ell developed, well nourished, in no acute distress. HEAD: n ormocephalic, atraumatic. EYES: p upils equal, round, reactive to light and accommodation, sclera non-icteric. EARS: n ormal. ORAL CAVITY: m [place] moist. THROAT: c lear. NECK/THYROID: n kayden supple, full range of motion, no cervical lymphadenopathy, no bruits. SKIN: w arm and dry, no suspicious lesions. HEART: r egular rate and rhythm, S1, S2 normal, no murmurs.? LUNGS: c lear to auscultation bilaterally. ABDOMEN: s oft, nontender, nondistended, bowel sounds present, normal, no organomegaly , no masses palpable. RECTAL EXAM: n ormal tone, no external hemorrhoids, no masses palpable, prostate normal, stool guaiac negative. MALE GENITOURINARY: c ircumcised, testes descended bilaterally, no testicular mass. EXTREMITIES: n o clubbing, cyanosis, or edema. NEUROLOGIC: n onfocal, motor strength normal upper and lower extremities, sensory exam intact. Assessment: * Assessment: 1. A nnual physical exam - Z00.00 (Primary) 2 . D iabetes type 2, controlled - E11.9 3 . T ubular adenoma of colon - D12.6 4 . E ssential hypertension - I10 5 . E rectile dysfunction, unspecified erectile dysfunction type - N52.9 6 . B arretts esophagus without dysplasia - K22.70 ?7. P ure hypercholesterolemia - E78.00 8 . C olon cancer screening - Z12.11 9 . D epression screening - Z13.31 Plan: * Treatment: 2. D iabetes type 2, controlled Continue Januvia Tablet, 50 MG, TAKE 1 TABLET BY MOUTH ONCE A DAY; C ontinue metFORMIN HCl Tablet, 500 MG, TAKE 2 TABLETS BY MOUTH TWICE DAILY WITH MEALS. L AB: Liver Panel (Ordered for 02/02/2025) L AB: Lipid Panel (Ordered for 02/02/2025) L AB: Hemoglobin A1c (Ordered for 02/02/2025) Notes: good a1c, will cntinue current regiment 3. T ubular adenoma of colon Notes: had colonoscopy 2 years ago. due in 3 years 4. E ssential hypertension Continue Irbesartan-hydroCHLOROthiazide Tablet, 300-12.5 MG, TAKE 1 TABLET BY MOUTH ONCE A DAY, Orally, Once a day. Notes: stable, will continue current regiment 5. E rectile dysfunction, unspecified erectile dysfunction type Continue Tadalafil Tablet, 10 MG, 1 tablet as needed, Orally, Once a day as needed. Notes: stable, will continue current regiment 6. B arretts esophagus without dysplasia Continue Omeprazole Capsule Delayed Release, 20 MG, TAKE 1 CAPSULE BY MOUTH DAILY. Notes: doing well, will continue current regiment 7. P ure hypercholesterolemia Continue Atorvastatin Calcium Tablet, 40 MG, take 1 tablet by mouth daily, Orally, Once a day. Notes: stable, will contiue current regiment 8. C olon cancer screening L AB: Occult Blood, Stool, Guaiac (Collection Date & Time - 08/02/2024) N egative Value Reference Range O ccult Blood, Stool, Guaiac Neg Notes: guaiac negative??9.?Depression screening? Notes: negative screen?? * Procedure Codes: 8 2270 TEST FOR BLOOD, FECES * Preventive Medicine: Counseling: C are goal follow-up plan: C ounseling for abnormal BMI provided?Yes, Missy rankine Normal BMI Follow-up G iving encouragement to exercise. Diabetes Care Plan: P atient Lifestyle Goals N eeds to maintain diet control.?Treatment Goals A 1C< 7. B arriers N o specific barriers, doing well. S elf-Managment Plan I ncrease light exercise to 3 times a week for 30 minutes. E xpected Outcome maintaining stable blood sugar levels within a target range. * Follow Up: 6 Months * * Sign off status: Completed true * Provider: Sher Cardenas MD Date: 0 08/02/2024 Generated for Gillian al/Guillermo/Jeannetteitting on: 0 02/03/2025 12:36 PM EDT History and Physical Notes * HPI (History of Present Illness) Category Sub-Category Detail Notes Category Not es Symptom(s) patient is a 58 yo male ehre for annual visit with review of recent labs and follow up of chronic issues Depression Screening PHQ-9 Little inte rest or pleasure in doing things: Not at all Feeling down, depressed, or hopeless: No t at all Trouble falling or staying asleep, or sl eeping too much: Not at all Feeling tired or having little energy: N ot at all Poor appetite or overeating: Not at all Feeling bad about yourself o r that you are a failure, or have let yourself or your family down: Not at all Trouble concentrating on thi ngs, such as reading the newspaper or watching television: Not at all Moving or speaking so slowly that other people could have noticed; or the opposite, being so fidgety or restless that you have been moving around a lot more than usual: Not at all Thoughts that you would be b el off or of hurting yourself in some way: Not at all Total Score: 0 Interpretation and Intervention Depression Radha farley Findings: Negative Follow-Up for Depression: : review of PH Q-9 found negative result, no follow-up needed SDOH Questions SDOH Questions In the past year have you been worried about losing housing?: No In the past year have you or any family members you live with been unable to get any of the following when it was really needed? Check all that apply:: None Communication Needs Communication Needs Does the patient have a hearing impairment: No Does the patient have a vision impairmen t?: Yes If yes, what is the vision impairment?: Glasses Does the patient have a cognition impair ment?: No Examination Category Sub-Category Detail Notes Category Not es General Examination GENERAL APPEARANCE: well dev eloped, well nourished, in no acute distress HEAD: normocephalic, atrau matic EYES: pupils equal, round, reactive to light and accommodation, sclera non-icteric EARS: normal THROAT: clear NECK/THYROID: neck supple, full ra nge of motion, no cervical lymphadenopathy, no bruits HEART: regular rate and rhy thm, S1, S2 normal, no murmurs LUNGS: clear to auscultatio n bilaterally ABDOMEN: soft, nontender, non distended, bowel sounds present, normal, no organomegaly , no masses palpable NEUROLOGIC: nonfocal, motor stre ngth normal upper and lower extremities, sensory exam intact SKIN: warm and dry, no tere picious lesions EXTREMITIES: no clubbing, cyanosi s, or edema MALE GENITOURINARY: circumcised, testes descended bilaterally, no testicular mass RECTAL EXAM: normal tone, no exte rnal hemorrhoids, no masses palpable, prostate normal, stool guaiac negative ORAL CAVITY: mucosa moist
--- OUTSIDE RECORDS SUMMARY | 2024-10-18 02:36 | XMS_ITS ---
Author Organization Benji Cardenas MD Address [address] [place] [phone] Care Team Providers Care Rack Cleaner Name Role Phone Benji Cardenas Primary Care Provider REASON FOR VISIT New Refill Request Medications Medication SIG (Take, Route, Fr equency, Duration) Notes Start Date End Date Status metFORMIN HCl 500 MG TAKE 2 TABLETS BY M OUTH TWICE DAILY WITH MEALS Orally twice a day for 90 days Active Encounters Encounter Location Date Provider Diagnosis Benji Cardenas MD [address] [place] [phone] 10/18/2024 Benji Cardenas Diabetes type 2, controlled E11.9 Assessments Encounter Date Diagnosis (ICD Code) Assessment Notes Treatment Notes Treatment Clinical Notes Section Notes 10/18/2024 Diabetes type 2, controlled (ICD-10 - E11.9) Plan Of Treatment Medication Medication Name Sig Start Date Stop Date Notes metFORMIN HCl 500 MG TAKE 2 TABLETS BY M OUTH TWICE DAILY WITH MEALS Orally twice a day for 90 days Next Appt Details Provider Name:Benji Roy patrick, 02/11/2025 03:00:00 PM, [address] [place] [address], [place] [address], [place], [place], [phone], Provider Name:Benji Roy hellenr, 07/28/2025 07:15:00 AM, [address] [place] [address], [place] [address], [place], [place], [phone], Provider Name:Benji Roy ier, 08/04/2025 03:30:00 PM, [address] [place] [address], [place] [address], [place], [place], [phone], Progress Notes * Umer SOSA ADOB:1965 (59 yo M)Acc No.[id number]:10/18/2024 Patient: Umer OLIVAS :1965 A ge:59 Y S ex:Male Address:[address] [place] [id number] * Refills Refill metFORMIN HCl Tablet, 500 MG, Orally, 360, TAKE 2 TABLETS BY MOUTH TWICE DAILY WITH MEALS, twice a day, 90 days, Refills=3 * true * Date: Generated for Gillian al/Guillermo/Jeannetteitting on: 0 02/03/2025 12:36 PM EDT
--- OUTSIDE RECORDS SUMMARY | 2024-12-23 10:45 | XMS_ITS ---
Author Organization Benji Cardenas MD Address [address] [place] [phone] Care Team Providers Care Pump Stitcher Name Role Phone Benji Cardenas Primary Care Provider Allergies Allergen (clinical drug ingredient) Drug/Non Drug Allergy documented on EMR Reaction Allergy Type Onset Date Status Substance with sulfonamide structure and antibacterial mechanism of action (substance) sulfa (uncoded) hives Allergy Active REASON FOR VISIT DEPRESSION?, Video [phone] Medications Medication SIG (Take, Route, Frequency, Duration) Notes Start Date End Date Status valACYclovir HCl 1 GM TAKE 2 TABLETS BY MOUTH EVERY 12 HOURS FOR 1 DAY for 1 Active Irbesartan-hydroCHLOROthia zide 300-12.5 MG TAKE 1 TABLET BY MOUTH ONCE A DAY for 30 Active Cyclobenzaprine HCl 5 MG TAKE 1 TABLET B Y MOUTH AT BEDTIME NEEDED for 30 Not-Taking Fluconazole 150 MG 2 tablet Orally repe at in one week for 7 days Not-Takin g Viagra 50 MG 1 tablet as needed Orally Once a day for 30 day(s) 03/16/2015 Not-Taking Omeprazole 20 MG TAKE 1 CAPSULE BY MOUTH DAILY Active metFORMIN HCl 500 MG TAKE 2 TABLETS BY MOUTH TWICE DAILY WITH MEALS Orally twice a day for 90 days Active Tadalafil 10 MG 1 tablet as needed Orally Once a day as needed 07/06/2020 Active Januvia 50 MG TAKE 1 TABLET BY NYA TH ONCE A DAY Active Atorvastatin Calcium 40 MG take 1 tablet by mouth daily Orally Once a day Active Escitalopram Oxalate 10 MG 1 tablet Oral ly Once a day for 30 day(s) 12/23/2024 Active Ketoconazole 2 % 1 application Externally Twice a day for 30 days 03/08/2022 Active Ibuprofen 800 MG TAKE 1 TABLET BY NYA TH 3 TIMES A DAY Orally Three times a day for 30 days Active Social History Tobacco Use: Social History [...] Never (0 point) Points 4 Interpretation Positive AUDIT-C (Standard) Question Answer Notes Did you have a drink contain ing alcohol in the past year? Yes How often did you have a dri nk containing alcohol in the past year? Daily or almost daily (4 points) How many drinks did you have on a typical day when you were drinking in the past year? 5 or 6 drinks (2 points) How often did you have six o r more drinks on one occasion in the past year? Never (0 point) Points 6 Interpretation Positive Section Notes: Patient feels Chantix is not helping still smoking a pack a day. Vital Signs Height 69 in 12/23/2024 Weight 214 lbs 12/23/2024 BMI 31.6 kg/m2 12/23/2024 weight at home is 214 BP not taken Encounters Encounter Location Date Provider Diagnosis Benji Cardenas MD [address] [place] [phone] 12/23/2024 Benji Cardenas Dysthymia F34.1 Assessments Encounter Date Diagnosis (ICD Code) Assessment Notes Treatment Notes Treatment Clinical Notes Section Notes 12/23/2024 Dysthymia (ICD-10 - F34.1) patient verbalized understanding of medicatio and directions for use Plan Of Treatment Medication Medication Name Sig Start Date Stop Date Notes Escitalopram Oxalate 10 MG 1 tablet Oral ly Once a day for 30 day(s) 12/23/2024 Treatment Notes Assessment Notes Dysthymia patient verbalized u nderstanding of medicatio and directions for use Next Appt Details Follow Up: 2 Weeks, Reason: Provider Name:Benji nguyen, 02/11/2025 03:00:00 PM, [address] [place] [address], [phone], Provider Name:Benji nguyen, 07/28/2025 07:15:00 AM, [address] [place] [address], [phone], Provider Name:Benji nguyen, 08/04/2025 03:30:00 PM, [address] [place] [address], [address], [phone], Progress Notes * Umer SOSA ADOB:1965 (59 yo M)Acc No.[id number]:12/23/2024 Patient: Umer OLIVAS Provider: Sher Cardenas MD :1965 A ge:59 Y S ex:Male Date:12/23/2024 Address:[address] [place], [place] [phone] Subjective: * Chief Complaints: * D EPRESSION?Video [phone] * HPI: S ymptom(s): Telehealth L ocation of provider rendering services: [address], [address], L ocation of patient: a t address listed in demographics for today's visit, P atnieves identification confirmed using: [place] ame, T elehealth method: V ideo conference where patient is visible to the provider of care, C onsent: P atient verbally consented to treatment, Patient verbally consented to billing insurance company, Patient informed of any privacy concerns related to method of visit, T otal time spend talking with patient (minutes) 2 0. patient is a 59 yo male video telehealth visit, here for follow up. feeling depressed. sister has brain tumor and brother in law has cancer. is him. is going to get a chief ophthalmic technician. not eating well drinking too much. not suicidal. D epression Screening: PHQ-9 L ittle interest or pleasure in doing things M ore than half the days, F eeling down, depressed, or hopeless N early every day, T rouble falling or staying asleep, or sleeping too much N early every day, F eeling tired or having little energy N early every day, P oor appetite or overeating N early every day, F eeling bad about yourself or that you are a failure, or have let yourself or your family down N early every day, T rouble concentrating on things, such as reading the newspaper or watching television N early every day, M oving or speaking so slowly that other people could have noticed; or the opposite, being so fidgety or restless that you have been moving around a lot more than usual N ot at all, T houghts that you would be better off or of hurting yourself in some way S everal days (Consider Suicide Assessment Risk), T otal Score 2 1, I nterpretation S evere Depression. * ROS: G eneral/Constitutional: Denies C hills. D enies F atigue. D enies F ever. D enies H eadache. E NT: Denies S ore throat. R espiratory: Denies C ough. D enies S hortness of breath at rest. D enies S hortness of breath with exertion. G astrointestinal: Denies D iarrhea. D enies N ausea. P sychiatric: Admits A nxiety. A dmits D epressed mood. A dmits D ifficulty sleeping. A dmits E ating disorder. A dmits S ubstance abuse.?Admits S uicidal thoughts. * Medical History: * Surgical History: * Hospitalization/Major Diagno stic Procedure: * Social History: T obacco Use: T [...] oints 4 , I nterpretation P ositive. D rug/Alcohol: A KAREN-C (Standard) D id you have a drink containing alcohol in the past year? Y es, H ow often did you have a drink containing alcohol in the past year? D aily or almost daily (4 points), H ow many drinks did you have on a typical day when you were drinking in the past year? 5 or 6 drinks (2 points), H ow often did you have six or more drinks on one occasion in the past year? N ever (0 point), P oints 6 , I nterpretation P ositive. P atient feels Chantix is not helping still smoking a pack a day. * Medications: T akingKetoconazole 2 % Cream 1 application Externally Twice a day Ibuprofen 800 MG Tablet TAKE 1 TABLET BY MOUTH 3 TIMES A DAY Orally Three times a day Tadalafil 10 MG Tablet 1 tablet as needed Orally Once a day as needed Januvia 50 MG Tablet TAKE 1 TABLET BY MOUTH ONCE A DAY Atorvastatin Calcium 40 MG Tablet take 1 tablet by mouth daily Orally Once a day Omeprazole 20 MG Capsule Delayed Release TAKE 1 CAPSULE BY MOUTH DAILY metFORMIN HCl 500 MG Tablet TAKE 2 TABLETS BY MOUTH TWICE DAILY WITH MEALS Orally twice a day valACYclovir HCl 1 GM Tablet TAKE 2 TABLETS BY MOUTH EVERY 12 HOURS FOR 1 DAY Irbesartan-hydroCHLOROthiazide 300-12.5 MG Tablet TAKE 1 TABLET BY MOUTH ONCE A DAY Taking Ketoconazole 2 % Cream 1 application Externally Twice a day Taking Ibuprofen 800 MG Tablet TAKE 1 TABLET BY MOUTH 3 TIMES A DAY Orally Three times a day Taking Tadalafil 10 MG Tablet 1 tablet as needed Orally Once a day as needed Taking Januvia 50 MG Tablet TAKE 1 TABLET BY MOUTH ONCE A DAY Taking Atorvastatin Calcium 40 MG Tablet take 1 tablet by mouth daily Orally Once a day Taking Omeprazole 20 MG Capsule Delayed Release TAKE 1 CAPSULE BY MOUTH DAILY Taking metFORMIN HCl 500 MG Tablet TAKE 2 TABLETS BY MOUTH TWICE DAILY WITH MEALS Orally twice a day Taking valACYclovir HCl 1 GM Tablet TAKE 2 TABLETS BY MOUTH EVERY 12 HOURS FOR 1 DAY Taking Irbesartan-hydroCHLOROthiazide 300-12.5 MG Tablet TAKE 1 TABLET BY MOUTH ONCE A DAY Not-Taking/PRNCyclobenzaprine HCl 5 MG Tablet TAKE 1 [...] Objective: * Vitals: H t: 69, Wt: 214, BMI:31.6, Wt-k.07. weight at home is 214 BP not taken. * Examination: G eneral Examination: GENERAL APPEARANCE: a lert, well hydrated, in no distress.? HEAD: n ormocephalic. Assessment: * Assessment: 1. D ysthymia - F34.1 (Primary) Plan: * Treatment: * Procedure Codes: * Follow Up: 2 Weeks * * Sign off status: Completed true * Provider: Sher Cardenas MD Date: 0 12/23/2024 Generated for Alejandrai servando/Guillermo/eTransmitting on: 0 02/03/2025 12:37 PM EDT History and Physical Notes * HPI (History of Present Illness) Category Sub-Category Detail Notes Category Not es Symptom(s) Telehealth Location of [facility] rendering services:: [address], [address] patient is a 59 yo male video telehealth visit, here for follow up. feeling depressed. sister has brain tumor and brother in law has cancer. is him. is going to get a chief ophthalmic technician. not eating well drinking too much. not suicidal. Location of patient:: at address listed in demographics for today's visit Patient identification confirmed using:: Name, Telehealth method:: Video co nference where patient is visible to the provider of care Consent:: Patient verbally c onsented to treatment, Patient verbally consented to billing insurance company, Patient informed of any privacy concerns related to method of visit Total time spend talking with patient (m inutes): 20 Depression Screening PHQ-9 Little inte rest or pleasure in doing things: More than half the days Feeling down, depressed, or hopeless: Ne jossie every day Trouble falling or staying asleep, or sl eeping too much: Nearly every day Feeling tired or having little energy: N early every day Poor appetite or overeating: Nearly ever y day Feeling bad about yourself o r that you are a failure, or have let yourself or your family down: Nearly every day Trouble concentrating on thi ngs, such as reading the newspaper or watching television: Nearly every day Moving or speaking so slowly that other people could have noticed; or the opposite, being so fidgety or restless that you have been moving around a lot more than usual: Not at all Thoughts that you would be b el off or of hurting yourself in some way: Several days (Consider Suicide Assessment Risk) Total Score: 21 Interpretation: Severe Depression Examination Category Sub-Category Detail Notes Category Not es General Examination GENERAL APPEARANCE: alert, w ell hydrated, in no distress HEAD: normocephalic
--- OUTSIDE RECORDS SUMMARY | 2025-01-10 10:00 | XMS_ITS ---
Author Organization Benji aCrdenas MD Address [address] [place] [phone] Care Team Providers Care Clutch Rebuilder Name Role Phone Benji Cardenas Primary Care Provider Allergies Allergen (clinical drug ingredient) Drug/Non Drug Allergy documented on EMR Reaction Allergy Type Onset Date Status Substance with sulfonamide structure and antibacterial mechanism of action (substance) sulfa (uncoded) hives Allergy Active REASON FOR VISIT 2 week follow up appt, Video [phone] Medications Medication SIG (Take, Route, Frequency, Duration) Notes Start Date End Date Status valACYclovir HCl 1 GM TAKE 2 TABLETS BY MOUTH EVERY 12 HOURS FOR 1 DAY for 1 Active metFORMIN HCl 500 MG TAKE 2 TABLETS BY MOUTH TWICE DAILY WITH MEALS Orally twice a day for 90 days Active Atorvastatin Calcium 40 MG take 1 tablet by mouth daily Orally Once a day Active Omeprazole 20 MG TAKE 1 CAPSULE BY MOUTH DAILY Active Januvia 50 MG TAKE 1 TABLET BY NYA TH ONCE A DAY Active Ketoconazole 2 % 1 application Externally Twice a day for 30 days 03/08/2022 Active Ibuprofen 800 MG TAKE 1 TABLET BY NYA TH 3 TIMES A DAY Orally Three times a day for 30 days Active Escitalopram Oxalate 10 MG 1 tablet Oral ly Once a day for 30 days 12/23/2024 Active Tadalafil 10 MG 1 tablet as needed Orally Once a day as needed 07/06/2020 Active Zolpidem Tartrate 5 MG 1 tablet at bedti me as needed Orally Once a day for 15 days 01/10/2025 Active Fluconazole 150 MG 2 tablet Orally repe at in one week for 7 days Not-Takin g Viagra 50 MG 1 tablet as needed Orally Once a day for 30 day(s) 03/16/2015 Not-Taking Cyclobenzaprine HCl 5 MG TAKE 1 TABLET B Y MOUTH AT BEDTIME NEEDED for 30 Not-Taking Irbesartan-hydroCHLOROthia zide 300-12.5 MG TAKE 1 TABLET BY MOUTH ONCE A DAY for 30 Active Problems Problem Type SNOMED Code ICD Code Onset Dates Problem Status W/U Status Risk Notes Problem Insomnia ([id number]) Insomnia (G47.00) Active confirmed Vital Signs Height 69 in 01/10/2025 Weight 209 lbs 01/10/2025 BMI 30.86 kg/m2 01/10/2025 weight at home is 209 BP not taken Encounters Encounter Location Date Provider Diagnosis Benji Cardenas MD [address] [place] [phone] 01/10/2025 Benji Cardenas Dysthymia F34.1 and Insomnia G47.00 Assessments Encounter Date Diagnosis (ICD Code) Assessment Notes Treatment Notes Treatment Clinical Notes Section Notes 01/10/2025 Dysthymia (ICD-10 - F34.1) 01/10/2025 Insomnia (ICD-10 - G47.00) Plan Of Treatment Medication Medication Name Sig Start Date Stop Date Notes Escitalopram Oxalate 10 MG 1 tablet Oral ly Once a day for 30 days 12/23/2024 Zolpidem Tartrate 5 MG 1 tablet at bedti me as needed Orally Once a day for 15 days 01/10/2025 Next Appt Details Provider Name:Benji Roy ier, 02/11/2025 03:00:00 PM, [address] [facility], [address], [place], [place], [phone], Provider Name:Benji nguyen, 07/28/2025 07:15:00 AM, [address] [facility], [address], [place], [place], [phone], Provider Name:Benji Roy ier, 08/04/2025 03:30:00 PM, [address] [facility], [address], [place], [place], [phone], Progress Notes * Umer SOSA ADOB:1965 (59 yo M)Acc No.[id number]:01/10/2025 Patient: Umer OLIVAS Provider: Sher Cardenas MD :1965 A ge:59 Y S ex:Male Date:01/10/2025 Address:[address] [place], [place] [phone] Subjective: * Chief Complaints: * 2 week follow up apptVideo [phone] * HPI: S ymptom(s): Telehealth L ocation of provider rendering services: [address] [facility], [place] [address], L ocation of patient: a t address listed in demographics for today's visit, P atient identification confirmed using: [employer] [place] ame, T elehealth method: V ideo conference where patient is visible to the provider of care, C onsent: P atient verbally consented to treatment, Patient verbally consented to billing insurance company, Patient informed of any privacy concerns related to method of visit, T otal time spend talking with patient (minutes) 2 0. patient is a 59 yo male here for 2 week follow up visit/ not eating much. still drinking but not quite as much. med is working a little. * ROS: G eneral/Constitutional: Denies C hills. D enies F atigue. D enies F ever. D enies H eadache. E NT: Denies S ore throat. R espiratory: Denies C ough. D enies S hortness of breath at rest. D enies S hortness of breath with exertion. G astrointestinal: Dency Christina iarrhea. D milton N ausea. P sychiatric: Admits A nxiety. A dmits Carri epressed mood. D milton Christina ifficulty sleeping. * Medical History: * Surgical History: * Hospitalization/Major Diagno stic Procedure: * Medications: T akingKetoconazole 2 % Cream [...] 1 TABLET BY MOUTH ONCE A DAY Escitalopram Oxalate 10 MG Tablet 1 tablet Orally Once a day Taking Ketoconazole 2 % Cream 1 application [...] TABLET BY MOUTH ONCE A DAY Taking Escitalopram Oxalate 10 MG Tablet 1 tablet Orally Once a day Not-Taking/PRNCyclobenzaprine HCl 5 MG Tablet TAKE 1 [...] Objective: * Vitals: H t: 69, Wt: 209, BMI:30.86, Wt-k.8. weight at home is 209 BP not taken. * Examination: G eneral Examination: GENERAL APPEARANCE: a lert, well hydrated, in no distress.? Assessment: * Assessment: 1. D ysthymia - F34.1 (Primary) 2 . I nsomnia - G47.00 Plan: * Treatment: 2. I nsomnia Start Zolpidem Tartrate Tablet, 5 MG, 1 tablet at bedtime as needed, Orally, Once a day, 15 days, 15 Tablet. * Procedure Codes: * * Sign off status: Completed true * Provider: Sher Cardenas MD Date: 0 01/10/2025 Generated for Gillian al/Guillermo/Ewelinasmitting on: 0 02/03/2025 12:37 PM EDT History and Physical Notes * HPI (History of Present Illness) Category Sub-Category Detail Notes Category Not es Symptom(s) Telehealth Location of [facility] rendering services:: [address], [address] patient is a 59 yo male here for 2 week follow up visit/ not eating much. still drinking but not quite as much. med is working a little Location of patient:: at address listed in [...] spend talking with patient (m inutes): 20 Examination Category Sub-Category Detail Notes Category Not es General Examination GENERAL APPEARANCE: alert, w ell hydrated, in no distress
--- OUTSIDE RECORDS SUMMARY | 2025-02-03 03:00 | XMS_ITS ---
Author Organization Benji Cardenas MD Address [address] [place] [id number] Care Team Providers Care Bilingual Operator Name Role Phone Benji Cardenas Primary Care Provider Results Component Value Reference Range Notes Liver Panel (Not yet review ed by provider) Interpretation: Performing Lab:[facility], [address] [place] [phone] Notes/Report: Bilirubin Total 0.8 0.0-1.0 mg/dL Bilirubin Direct 0.3 0.0-0.5 mg/dL Aspartate Amino Transferase 50 5-37 U/L Alanine Aminotransferase 39 0-40 U/L Total Protein 6.6 6.5-8.0 g/dL Albumin Level 4.3 3.5-5.0 g/dL Alkaline Phosphatase 57 39-117 U/L Lipid Panel with Reflex (Not yet reviewed by provider) Interpretation: Performing Lab:[facility], [address] [place] [phone] Notes/Report: Triglycerides 103 <150 mg/dL Desirable Triglyceride: less than 150 mg/dL Borderline High Triglyceride 150-199 mg/dL High Triglyceride: 200-499 mg/dL Very High Triglyceride: greater than or equal to 5OO mg/dL Cholesterol 159 <200 mg/dL Desirable Cholesterol: less than 200 mg/dL Borderline High Cholesterol: 200-239 mg/dL High Cholesterol: greater than 239 mg/dL LDL Cholesterol Calculated 49 <100 mg/dL Desirable LDL: less than 100 mg/dL Near Optimal/Above Optimal LDL: 110-129 mg/dL Borderline High LDL: 130-159 mg/dL High LDL: 160-189 mg/dL Very High LDL: greater than or equal to 190 mg/dL HDL Cholesterol 90 >40 mg/dL Desirable HDL: greater than 40 mg/dL Note: This HDL assay may give artificially low results in patients with liver disease. Hemoglobin A1c (Not yet revi ewed by provider) Interpretation: Performing Lab:[facility], [address] [place] [phone] Notes/Report: Hemoglobin A1c % 5.9 <6.0 % Hemoglobin A1C Reference Range Adults: 4.8 - 6.0 % Non diabetic: < 6.0 % Goal: < 7.0 % Additional Action Suggested: > 8.0 % Note: Hemoglobin A1c results are invalid for patients with abnormal amounts of HbF. Blood transfusions may impact the HbA1c concentration in the patient sample. Estimated Average Glucose 123 eAG = Estimated average glucose which is %A1C expressed as average glucose, using the formula of the Z7N-Mbvvyad Average Glucose study (ADAG), Diabetes Care, Vol.31,#8, Dec. 2007 REASON FOR VISIT LIVER, LIPID FASTING , HEMOGLOBIN A1C Immunizations Vaccine Route Administration Date Status Comme nts Fluarix Quadrivalent - 150 IM Intramuscular 02/03/2025 Adm inistered Vital Signs Height 69 in 02/03/2025 Encounters Encounter Location Date Provider Diagnosis Benji Cardenas MD [address] [place], [place] [phone] 02/03/2025 Benji Cardenas Diabetes type 2, controlled E11.9 ; Pure hypercholesterolemia E78.00 ; Essential hypertension I10 and Encounter for administration of vaccine Z23 Assessments Encounter Date Diagnosis (ICD Code) Assessment Notes Treatment Notes Treatment Clinical Notes Section Notes 02/03/2025 Diabetes type 2, controlled (ICD-10 - E11.9) 02/03/2025 Pure hypercholesterolemia (ICD-10 - E78.00) 02/03/2025 Essential hypertensi on (ICD-10 - I10) 02/03/2025 Encounter for administration of vaccine (ICD-10 - Z23) Plan Of Treatment Pending Test Test Name Order Date Liver Panel 02/03/2025 Lipid Panel with Reflex 02/03/2025 Hemoglobin A1c 02/03/2025 Next Appt Details Provider Name:Benji Roy ier, 02/11/2025 03:00:00 PM, [address] [place] [address], [address], [phone], Provider Name:Benji macedor, 07/28/2025 07:15:00 AM, [address] [place] [address], [address], [phone], Provider Name:Benji Roy ier, 08/04/2025 03:30:00 PM, [address] [place] [address], [address], [phone], Progress Notes * Umer SOSA ADOB:1965 (59 yo M)Acc No.[id number]:02/03/2025 Progress Note Patient: Umer OLIVAS Provider: Sher Cardenas MD :1965 A ge:59 Y S ex:Male Date:02/03/2025 Address:[address] [place], [place] [id number] Subjective: * Chief Complaints: * 1 . LIVER, LIPID FASTING , HEMOGLOBIN A1C. * Medical History: Objective: * Vitals: H t: 68. Assessment: * Assessment: 1. D iabetes type 2, controlled - E11.9 (Primary) 2 . P ure hypercholesterolemia - E78.00 3 . E ssential hypertension - I10 4 . E ncounter for administration of vaccine - Z23 Plan: * Treatment: 2. P ure hypercholesterolemia L AB: Liver Panel (Collection Date & Time - 02/03/2025 07:00 AM) L AB: Lipid Panel with Reflex (Collection Date & Time - 02/03/2025 07:00 AM) L AB: Hemoglobin A1c (Collection Date & Time - 02/03/2025 07:00 AM) 3. E ssential hypertension L AB: Liver Panel (Collection Date & Time - 02/03/2025 07:00 AM) L AB: Lipid Panel with Reflex (Collection Date & Time - 02/03/2025 07:00 AM) L AB: Hemoglobin A1c (Collection Date & Time - 02/03/2025 07:00 AM) * Immunizations: Fluarix Quadrivalent - 150 : 0.5 mL (Dose No:1) (Route: Intramuscular) given by Kerri Pack , Office Staff on Left Deltoid * Procedure Codes: 3 6415 VENIPUNCT, ROUTINE*, 84923 VENIPUNCT, ROUTINE*, 95688 FLU VACCINE NO PRESERV 3 & >, 31120 IMMUNIZATION ADMIN * * The named appointment provid er may or may not be the originator of this progress note, and it is not deemed complete until electronically signed by the appointment provider. Sign off status: Pending * Provider: Sher Cardenas MD Date: 0 02/03/2025 Generated for Gillian al/Guillermo/Jeannetteitting on: 02/03/2025 12:36 PM EDT
[2025-02-03 10:50] LABS: Alanine Aminotransferase 39 U/L (0-40); Albumin Level 4.3 g/dL (3.5-5.0); Alkaline Phosphatase 57 U/L (39-117); Aspartate Amino Transferase 50 U/L (5-37); Cholesterol 159 mg/dL (<200); HDL Cholesterol 90 mg/dL (>40); Total Protein 6.6 g/dL (6.5-8.0); Triglycerides 103 mg/dL (<150)
[2025-02-03 10:54] LABS: Hemoglobin A1C 162.1952 umol/L; Total Hemoglobin (HGBA1C) 3926.3940 umol/L
[2025-02-03 11:26] LABS: Reflex LDLD? No
--- OUTSIDE RECORDS SUMMARY | 2025-02-03 12:36 | XMS_ITS | Patient Health Record ---
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 Role Phone Ronald RAMIREZ, Benji Primary Care Provider Salvatore Foss Jr Unavailable Allergies Allergen (clinical drug ingredient) Drug/Non Drug Allergy documented on EMR Reaction Allergy Type Onset Date Status Sulfa Unknown Drug Allergy Active Reason For Referral No Information Medications Medication SIG (Take, Route, Frequency, Duration) [...] pernell 300-12.5 MG Oral for 30 Active Immunizations Vaccine Route Administration Date Status Comme nts Flu vaccine no Preserv 3 and > Unknown 03/29/2015 Admin istered Influenza Unknown 04/19/2022 Administered Problems Problem Type SNOMED Code ICD Code Onset Dates Problem Status W/U Status Risk Notes Problem 837520535 Colon cancer screening (Z12.11) Active confirmed Problem 554523900 Jones's esophagus without dysplasia (K22.70) Active confirmed Problem 664964651 Family history of colonic polyps (Z83.71) Active confirmed Problem Jones esophagus (385089137) Jones esophagus (K22.70) Active confirmed Plan Of Treatment Future Test Test Name Order Date UPPER GI ENDOSCOPY 07/09/2015 COLONOSCOPY 07/09/2015 UPPER GI ENDOSCOPY 12/14/2022 COLONOSCOPY 12/14/2022 Insurance Providers Payer Name Payer Address Payer Phone Subscriber Number Group Number Insured Name Patient Relationship to Insured Coverage Start Date Coverage End Date [facility] [address] [place] [phone] [id number] SONA SOSA Self - patient is the insured Medical (General) History Medical History History ICD Code Jones's esophagus, EGD 10/11, 1 cm danya th, no dysplasia, five-year followup hiatal hernia Diabetes mellitus type 2 hypertension Colonoscopy 10/11, normal, fi ve-year followup due to family history of colon polyps. Cervical disc disease, sciatica Surgical History Surgery Date(Month/Year) bicep reattached 2018 Umbilical hernia repair 08/14
--- OUTSIDE RECORDS SUMMARY | 2025-02-03 12:36 | XMS_ITS | Clinical Summary ---
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 Name Role Phone Benji Cardenas MD Primary Care Provider Allergies Active Allergy Reactions Criticality Noted Date Comments Sulfa (Sulfonamide Antibiotics) Unknown 06/29 Medications metFORMIN (GLUCOPHAGE) 500 MG tablet Active valACYclovir (VALTREX) 1000 MG tablet Active ibuprofen (ADVIL,MOTRIN) 800 MG tablet 04/07/2022 Activ e atorvastatin (LIPITOR) 20 MG tablet 04/15/2022 Active irbesartan-hydro CHLOROthiazide (AVALIDE) 300-12.5 mg per tablet 04/15/2022 Active ketoconazole 2 % cream 03/08/2022 Active omeprazole (PRILOSEC) 20 MG capsule 03/10/2022 Active JANUVIA 50 mg tablet 04/07/2022 Active traMADoL (ULTRAM) 50 mg tablet 04/14/2022 Active chlorhexidine (PERIDEX) 0.12 % solution Swish and spit 15 mL 2 (two) times a day. For 30 sec.do not swallow. 473 mL 04/23/2022 Active Active Problems Problem Noted Date Diagnosed Date Jones's esophagus 04/23/2022 Social History Tobacco Use Types Packs/Day Years Used Date Smoking Tobacco: Never Assessed Education Answer Date Recorded Are you interested in more education? Not on jena e 09/24/2022 Are you concerned about learning? Not on file 09/24/2022 No 09/24/2022 No 09/24/2022 Digital Access Answer Date Recorded No 10/23/2022 No 10/23/2022 Reliable internet access at home? Not on file 10/23/2022 Device with a working camera? Not on file Sex and Gender Information Value Date Recorded Sex Assigned at Not on file Legal Sex Male 2:26 PM EST Gender Identity Not on file Sexual Orientation Not on file Last Filed Vital Signs Vital Sign Reading Time Taken Comments Blood Pressure 158/94 04/23/2022 2:51 PM EST Pulse 88 04/23/2022 2:51 PM EST Temperature 36.1 C (97 F) 04/23/2022 2:51 PM EST Respiratory Rate 18 04/23/2022 2:51 PM EST Oxygen Saturation 95% 04/23/2022 2:51 PM EST Inhaled Oxygen Concentration - - Weight 104.3 kg (230 lb) 04/23/2022 2:51 PM EST Height 177.8 cm (5' 10 ) 04/23/2022 2:51 PM EST Body Mass Index 33 04/23/2022 2:51 PM EST Plan of Treatment Health Maintenance Due Date Last Done Comments Adult Td,Tdap Booster 1965 CREATININE LEVEL 1965 LIPID PANEL 1965 POTASSIUM LEVEL 1964 DEPRESSION SCREENING 1976 SMOKING Hx and SMOKELESS TOBACCO SCREENING 1977 HEPATITIS C SCREENING 1982 HIV ONE-TIME SCREENING (18-65 YEARS) 1982 SCREENING FOR DIABETES 10/01/1999 COLOGUARD 2009 COLONOSCOPY 2009 COLORECTAL CANCER SCREENING 2009 FIT TEST 2009 FOBT 2009 SIGMOIDOSCOPY 2009 VIRTUAL COLONOSCOPY 2009 PNEUMOCOCCAL VACCINES (50+ years) (3 of 3 - PCV20 or PCV21) 07/04/2024 07/04/2019, 05/31/2016 INFLUENZA VACCINE (#1) 2024 2, 02/25/2021, 02/20/2020, Additional history exists COVID-19 VACCINE ( - season) 2025 03/25/2022, 08/20/2021, 11/07/2020, Additional history exists RSV VACCINE (1 - 1-dose 75+ series) 10/01/2039 ZOSTER VACCINES Completed 12/16/2019, 07/16/2019 HEPATITIS A VACCINES Aged Out No long er eligible based on patient's age to complete this topic HIB VACCINES Aged Out No longer eligi ble based on patient's age to complete this topic MENINGOCOCCAL VACCINES (ACWY) Aged Out No longer eligible based on patient's age to complete this topic MENINGOCOCCAL VACCINES (B) Aged Out N o longer eligible based on patient's age to complete this topic Medical Devices Not on file Insurance [facility] Member Subscriber Plan / Payer (Ef fective 2021-Present) Name:Umer Newby Relation to Subscriber:Self Name:Umer Newby Payer ID:Not on file Type:HMO Address: [place] [id number] [facility] Member Subscriber Plan / Payer ( fective 2021-Present) Name:Umer Newby Relation to Subscriber:Self Name:Umer Newby Payer ID:Not on file Type:O Address: [place] [id number] Care Teams Bond Trader Relationship Specialty Start Date End Date Benji Cardenas MD [address] [place] [address] [place] [address] PCP - General Internal Medicine 04/23/22 Additional Source Comments The information contained in this document represents components of the legal health record. It is not the complete legal health record.[facility]
--- OUTSIDE RECORDS SUMMARY | 2025-02-03 12:36 | XMS_ITS | Patient Health Record ---
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 Phone Benji Cardenas Primary Care Provider Allergies Allergen (clinical drug ingredient) Drug/Non Drug Allergy documented on EMR Reaction Allergy Type Onset Date Status Substance with sulfonamide structure and antibacterial mechanism of action (substance) sulfa (uncoded) hives Allergy Active Results Component Value Reference Range Notes Liver Panel Reviewed date:05/02/2024 12:55:35 PM Interpretation: Performing Lab:[facility], [address] [place] [phone] Notes/Report: Bilirubin Total 0.4 0.0-1.0 mg/dL Bilirubin Direct 0.2 0.0-0.5 mg/dL Aspartate Amino Transferase 41 5-37 U/L Alanine Aminotransferase 54 0-40 U/L Total Protein 6.8 6.5-8.0 g/dL Albumin Level 4.3 3.5-5.0 g/dL Alkaline Phosphatase 51 39-117 U/L Glucose Fasting Reviewed date:05/02/2024 12:57:00 PM Interpretation: Performing Lab:[facility], [address] [place] [phone] Notes/Report: Glucose Fasting 185 60-99 mg/dL A fasting glucose of 126 mg/dl or greater on more than one occasion is considered diagnostic of diabetes. Lipid Panel Reviewed date:05/02/2024 03:18:42 PM Interpretation: Performing Lab:[facility], [address] [place] [phone] Notes/Report: Triglycerides 91 <150 mg/dL Desirable Triglyceride: [...] A1c Reviewed date:05/02/2024 12:56:03 PM Interpretation: Performing Lab:[facility], [address] [place] [phone] Notes/Report: Hemoglobin A1c % 7.1 <6.0 % [...] average glucose, using the formula of the P7D-Sztggfb Average Glucose study (ADAG), Diabetes Care, Vol.31,#8, 2007 Complete Blood Count Auto Di ff Reviewed date:07/26/2024 04:43:19 PM Interpretation: Performing Lab:[facility], [address] [place] [phone] Notes/Report: White Blood Count 9.1 4.8-10.8 X10*3/uL [...] NRBC Abs Auto 0.000 0.0-0.012 X10*3/uL Comprehensive [place]. Panel Fa st Reviewed date:07/26/2024 04:27:05 PM Interpretation: Performing Lab:[facility], [address] [place] [phone] Notes/Report: Sodium 142 135-145 mmol/L Potassium 3.4 [...] Alkaline Phosphatase 57 39-117 U/L Lipid Panel Reviewed date:07/26/2024 12:44:03 PM Interpretation: Performing Lab:[address] [phone] Notes/Report: Triglycerides 89 <150 mg/dL Desirable Triglyceride: [...] (Free>4and<10) Reviewed date:07/26/2024 12:43:31 PM Interpretation: Performing Lab:[address] [phone] Notes/Report: PSA,Total (Free>4and<10) 0.30 0.00-4.00 ng/mL A [...] Random Reviewed date:07/26/2024 12:43:39 PM Interpretation: Performing Lab:[address] [phone] Notes/Report: Creatinine Urine 190.57 Microalbumin Urine 39.0 Microalbum/Creatinine Ratio Ur 20.4 <30 ug/mg cr Albumin/Creatinine Ratio Reference Ranges: Normal: < 30 ug/mg creatinine Microalbuminuria: 30 - 300 ug/mg creatinine Clinical Albuminuria: > 300 ug/mg creatinine Hemoglobin A1c Reviewed date:07/26/2024 12:43:23 PM Interpretation: Performing Lab:[address] [phone] Notes/Report: Hemoglobin A1c % 6.8 <6.0 % [...] average glucose, using the formula of the Z1O-Vmexgyg Average Glucose study (ADAG), Diabetes Care, Vol.31,#8, Dec. 2007 UA ClnCatch+Micro w/rflx Cul t Reviewed date:07/26/2024 04:43:35 PM Interpretation: Performing Lab:[address] [phone] Notes/Report: Urine, Clean Catch Color Urine Yellow Appearance Urine Clear PH 6.0 5.0-9.0 Glucose Urine UA 250 Negative mg/dL Urine Blood Negative Negative Specific Surfside - Urine 1.025 1.005-1.025 Urine Protein 30 (1+) Neg-Trace mg/dL Urine Ketones Negative Negative mg/dL Nitrite Urine Negative Negative Leukocyte Esterase Urine Negative Negative RBC Urine 0-2 0-2 /HPF WBC Urine 0-5 0-5 /HPF Squamous Epithelial Cell Urine 0-2 0-2 /HPF Bacteria Urine None Seen None Seen Hyaline Casts Urine 0-2 0-2 /LPF Liver Panel (Not yet reviewe d by provider) Interpretation: Performing Lab:[address] [phone] Notes/Report: Bilirubin Total 0.8 0.0-1.0 mg/dL Bilirubin Direct 0.3 0.0-0.5 mg/dL Aspartate Amino Transferase 50 5-37 U/L Alanine Aminotransferase 39 0-40 U/L Total Protein 6.6 6.5-8.0 g/dL Albumin Level 4.3 3.5-5.0 g/dL Alkaline Phosphatase 57 39-117 U/L Lipid Panel with Reflex (Not yet reviewed by provider) Interpretation: Performing Lab:[address] [phone] Notes/Report: Triglycerides 103 <150 mg/dL Desirable Triglyceride: [...] yet revi ewed by provider) Interpretation: Performing Lab:[facility], [address] [place] [phone] Notes/Report: Hemoglobin A1c % 5.9 <6.0 % [...] average glucose, using the formula of the W5W-Xmpxzxy Average Glucose study (ADAG), Diabetes Care, Vol.31,#8, 2007 Occult Blood, Stool, Guaiac Reviewed date:08/02/2024 09:50:20 AM Interpretation:Negative Performing Lab: Notes/Report: Negative Occult Blood, Stool, Guaiac Neg Rubens Leon Reviewed date:05/02/2024 03:22:01 PM Interpretation: Performing Lab:[facility], [address] [place] [phone] Notes/Report: Rubens Leon See Note Specimen held untested for 24 hours; Call to request Chemistry testing. Rubens Leon Reviewed date:07/26/2024 12:42:55 PM Interpretation: Performing Lab:[facility], [address] [place] [phone] Notes/Report: Rubens Leon See Note Specimen held untested for 24 hours; Call to request Chemistry testing. Rubens Leon (Not yet reviewed by provider) Interpretation: Performing Lab:[facility], [address] [place] [phone] Notes/Report: Rubens Leon See Note Specimen held untested for 24 hours; Call to request Chemistry testing. Reason For Referral No Information Medications Medication [...] TAKE 1 CAPSULE BY MOUTH DAILY Active Tadalafil 10 MG 1 tablet as needed Orally Once a day as needed 07/06/2020 Active Zolpidem Tartrate 5 MG 1 tablet at bedti me as needed Orally Once a day for 15 days 01/10/2025 Active Ketoconazole 2 % 1 application Externally Twice a day for 30 days 03/08/2022 Active Fluconazole 150 MG 2 tablet Orally repe at in one week for 7 days Not-Takin g Ibuprofen 800 MG TAKE 1 TABLET BY NYA TH 3 TIMES A DAY Orally Three times a day for 30 days Active Viagra 50 MG 1 tablet as needed Orally Once a day for 30 day(s) 03/16/2015 Not-Taking Escitalopram Oxalate 10 MG 1 tablet Oral ly Once a day for 30 days 12/23/2024 Active Januvia 50 MG TAKE 1 TABLET BY NYA TH ONCE A DAY for 30 Active Cyclobenzaprine HCl 5 MG TAKE 1 TABLET B Y MOUTH AT BEDTIME NEEDED for 30 Not-Taking valACYclovir HCl 1 GM TAKE 2 TABLETS BY MOUTH EVERY 12 HOURS FOR 1 DAY for 1 Active Irbesartan-hydroCHLOROthia zide 300-12.5 MG TAKE 1 TABLET BY MOUTH ONCE A DAY for 30 Active Immunizations Vaccine Route Administration [...] - 150 IM Intramuscular 02/09/2024 Adm inistered Fluarix Quadrivalent - 150 IM Intramuscular 02/03/2025 Adm inistered Tetanus Unknown 07/19/2012 Pending Social History Tobacco Use: Social History Observation [...] not currently using another form of tobacco AUDIT-C (Standard) Question Answer Notes Did you [...] helping still smoking a pack a day. Patient feels Chantix is not helping still smoking a pack a day. Patient feels Chantix is not helping still smoking a pack a day. Patient feels Chantix is not helping still smoking a pack a day. Patient feels Chantix is not helping still smoking a pack a day. Patient feels Chantix is not helping still smoking a pack a day. Patient feels Chantix is not helping still smoking a pack a day. Patient feels Chantix is not helping still smoking a pack a day. Patient feels Chantix is not helping still smoking a pack a day. Patient feels Chantix is not helping still smoking a pack a day. Patient feels Chantix is not helping still smoking a pack a day. Patient feels Chantix is not helping still smoking a pack a day. Problems Problem Type SNOMED Code ICD Code Onset Dates Problem Status W/U Status Risk Notes Problem 91523450 Lymphocytosis (D72.820) Active confirm ed Problem Insomnia (821239501) Insomnia (G47.00) Active confirmed Problem 72397522 Anxiety (F41.9) Active confirmed Problem 109195101 Body mass index (BMI) 35.0-35.9, adult (Z68.35) Active confirmed Problem 60951378 Smoker (F17.200) Active confirmed Problem 746861499 Tubular adenoma of colon (D12.6) Active confirmed Problem 82875779 Essential hypert ension (I10) Active confirmed Problem 05385796 Diabetes type 2, controlled (E11.9) Active confirmed Problem 131170743 Erectile dysfunc tion, unspecified erectile dysfunction type (N52.9) Active confirmed Problem 101392170 Non morbid obesi ty due to excess calories (E66.09) Active confirmed Problem 808535793 Cervical disc di sease (M50.90) Active confirmed Problem 991294279 Barretts esophag us without dysplasia (K22.70) Active confirmed Problem 24876282 Tobacco use diso rder (Z72.0) Active confirmed Problem 27263125 Tinea versicolor (B36.0) Active confirmed Problem 34421416 Dysthymia (F34.1) Active confirmed Problem 73360256 Acute non-recurr ent maxillary sinusitis (J01.00) Active confirmed Problem 30433703 Sciatica of righ t side (M54.31) Active confirmed Problem 898354234 Pure hypercholesterolemia (E78.00) Active confirmed Problem 395041645 Body mass index (BMI) of 37.0-37.9 in adult (Z68.37) Active confirmed Problem 766980398 BMI 37.0-37.9, a dult (Z68.37) Active confirmed Problem Thoracic outlet syndrome (477859775) Thoracic outlet syndrome (G54.0) Active confirmed Vital Signs Blood pressure diastolic 100 mm Hg 08/02/2024 holley ght is down 7 pounds since 02-01-24 Height 69 in 02/03/2025 Blood pressure systolic 158 mm Hg 08/02/2024 weig ht is down 7 pounds since 02-01-24 Weight 209 lbs 01/10/2025 weight at home is 209 BP not taken BMI 30.86 kg/m2 01/10/2025 weight at home is 209 BP not taken Encounters Encounter Location Date Provider Diagnosis Benij Cardenas MD [address] [place], [place] [id number] 02/09/2024 Benji Cardenas Encounter for immuni zation Z23 Benji Cardenas MD [address] [place] [id number] 05/02/2024 Benji Cardenas Diabetes type 2, controlled E11.9 and Pure hypercholesterolemia E78.00 Benji Cardenas MD [address] [place] [id number] 07/26/2024 Benji Cardenas Blood tests for rout ine general physical examination Z00.00 ; Diabetes type 2, controlled E11.9 ; Essential hypertension I10 ; Pure hypercholesterolemia E78.00 and Lymphocytosis D72.820 Benji Cardenas MD [address] [place] [id number] 02/03/2025 Benji Cardenas Diabetes type 2, controlled E11.9 ; Pure hypercholesterolemia E78.00 ; Essential hypertension I10 and Encounter for administration of vaccine Z23 Benji Cardenas MD [address] [place] [id number] 07/01/2024 Benji Cardenas Acute recurrent maxi llary sinusitis J01.01 Benji Cardenas MD [address] [place] [id number] 08/02/2024 Benji Cardenas Diabetes type 2, controlled E11.9 ; Annual physical exam Z00.00 ; Tubular adenoma of colon D12.6 ; Essential hypertension I10 ; Erectile dysfunction, unspecified erectile dysfunction type N52.9 ; Barretts esophagus without dysplasia K22.70 ; Pure hypercholesterolemia E78.00 ; Colon cancer screening Z12.11 and Depression screening Z13.31 Benji Cardenas MD [address] [place] [id number] 12/23/2024 Benji Cardenas Dysthymia F34.1 Benji Cardenas MD [address] [place] [id number] 01/10/2025 Benji Cardenas Dysthymia F34.1 and Insomnia G47.00 Benji Cardenas MD [address] [place] [id number] 05/13/2024 Benji Cardenas MD [address] [place] [id number] 06/03/2024 Benji Cardenas Pure hypercholestero lemia E78.00 Benji Cardenas MD [address] [place] [id number] 06/24/2024 Benji Cardenas MD [address] [place] [id number] 06/24/2024 Benji Cardenas MD [address] [place] [id number] 10/18/2024 Benji Cardenas Diabetes type 2, controlled E11.9 Assessments Encounter Date Diagnosis (ICD Code) Assessment Notes Treatment Notes Treatment Clinical Notes Section Notes 02/09/2024 Encounter for immunization (ICD-10 - Z23) 05/02/2024 Diabetes type 2, controlled (ICD-10 - E11.9) 05/02/2024 Pure hypercholesterolemia (ICD-10 - E78.00) 07/26/[address] ine general physical examination (ICD-10 - Z00.00) 02/03/2025 Diabetes type 2, controlled (ICD-10 - E11.9) 02/03/2025 Pure hypercholesterolemia (ICD-10 - E78.00) 07/01/2024 Acute recurrent maxillary sinusitis (ICD-10 - J01.01) patient verbalized understanding of medication and directions for use 08/02/2024 Diabetes type 2, controlled (ICD-10 - E11.9) good a1c, will cntinue current regiment 08/02/2024 Annual physical exam (ICD-10 - Z00.00) labs reviewed and discussed woth patient 12/23/2024 Dysthymia (ICD-10 - F34.1) patient verbalized understanding of medicatio and directions for use 01/10/2025 Dysthymia (ICD-10 - F34.1) 01/10/2025 Insomnia (ICD-10 - G47.00) 06/03/2024 Pure hypercholesterolemia (ICD-10 - E78.00) 10/18/2024 Diabetes type 2, controlled (ICD-10 - E11.9) 07/26/2024 Diabetes type 2, controlled (ICD-10 - E11.9) 02/03/2025 Essential hypertensi on (ICD-10 - I10) 08/02/2024 Tubular adenoma of colon (ICD-10 - D12.6) had colonoscopy 2 years ago. due in 3 years 07/26/2024 Essential hypertensi on (ICD-10 - I10) 02/03/2025 Encounter for administration of vaccine (ICD-10 - Z23) 08/02/2024 Essential hypertensi on (ICD-10 - I10) stable, will continue current regiment 07/26/2024 Pure hypercholesterolemia (ICD-10 - E78.00) 08/02/2024 Erectile dysfunction , unspecified erectile dysfunction type (ICD-10 - N52.9) stable, will continue current regiment 07/26/2024 Lymphocytosis (ICD-1 0 - D72.820) 08/02/2024 Barretts esophagus without dysplasia (ICD-10 - K22.70) doing well, will continue current regiment 08/02/2024 Pure hypercholesterolemia (ICD-10 - E78.00) stable, will contiue current regiment 08/02/2024 Colon cancer screeni ng (ICD-10 - Z12.11) guaiac negative 08/02/2024 Depression screening (ICD-10 - Z13.31) negative screen Plan Of Treatment Pending Test Test Name Order Date Electrocardiogram (EKG) 06/21/2018 Electrocardiogram (EKG) 07/04/2019 CT SHOULDER RT W&WO CONTRAST 05/31/2022 MRA UPPER EXT WITH CONT 07/05/2022 MRI CERVICAL SPINE NO CONTRAST XR CHEST 2 VIEW PA & LAT 08/24/2023 XR CHEST 2 VIEW PA & LAT 03/11/2014 Liver Panel 02/03/2025 Lipid Panel with Reflex 02/03/2025 Hold Gold 02/03/2025 CT cervical spine wo con 05/03/2022 CT shoulder RT wo con 06/02/2022 Hemoglobin A1c 02/03/2025 Future Test Test Name Order Date Liver Panel 02/02/2025 Lipid Panel 02/02/2025 Hemoglobin A1c 02/02/2025 Next Appt Details Provider Name:Benji nguyen, 02/11/2025 03:00:00 PM, [address] [place] [address], [address], [place], [place], [phone], Provider Name:Benji nguyen, 07/28/2025 07:15:00 AM, [address], [address], [place], [place], [phone], Provider Name:Benji macedor, 08/04/2025 03:30:00 PM, [address] [facility], [address], [place], [place], [phone], Insurance Providers Payer Name Payer Address Payer Phone Subscriber Number Group Number Insured Name Patient Relationship to Insured Coverage Start Date Coverage End Date [employer] [facility] [address] [place], [place] [id number] [phone] [id number] Umre Newby Self - patient is the insured Medical (General) History Medical History History ICD Code Colonoscopy and Upper Endosc opy 10/23/15 w/Dr. Zuñiga (repeat 5 years for colonoscopy and endo in a few years) APOLONIA-inhibitor cough colonoscopy and endo 2022 repaeat in 5
== END 2025-02-03 10:29 | disposition home or self-care (01) ==
LOC: HO.LNP 10:28
PROVIDERS: Visit Provider Internal Medicine
DX: E11.9 Type 2 diabetes mellitus without complications (principal); E78.00 Pure hypercholesterolemia, unspecified; I10 Essential (primary) hypertension
CPT/HCPCS: 80061; 80076; 83036